=== PATIENT | female | born 1970 | race Caucasian/White ===

== ENCOUNTER 2022-05-31 07:48 | Outpatient (CLI) | payer OTHER, SELFPAY ==
--- OUTSIDE RECORDS SUMMARY | 2022-05-31 07:52 | XMS_ITS | Encounter Summary ---
:1970 Author Organization [place] Address [address] [place] [address] Care Team Providers Name Role Phone Madhuri Retana MD Primary Care Provider [phone] Dakotah Toth MD Unavailable [phone] Encounter Details Date Type Department Care Team Description 12/22/2020 Travel Social History Tobacco Use Types Packs/Day Years Used Date Smoking Tobacco: Never Smokeless Tobacco: Never Sex Assigned at Date Recorded Not on file COVID-19 Exposure Response Date Recorded In the last month, have you been in contact with No / Unsure 12/22/2020 1:54 PM CDT someone who was confirmed or suspected to have Coronavirus / COVID-19? documented as of this encounter Plan of Treatment Upcoming Encounters Date Type Specialty Care Team Description 06/21/2022 Office Visit Vascular Surgery Kim Toth MD [address] [place], [place] [address] (Wo rk) documented as of this encounter Visit Diagnoses Not on filedocumented in this encounter Care Teams Sanitation Inspector Relationship Specialty Start Date End Date Madhuri Retana, PCP - General Family Practice 06/03/20 [facility] [address] [place] [address] Dakotah Toth Assigned Heart and Vascular 0 MD Greyson Provider [address] [place], [place] [id number] documented as of this encounter
--- OUTSIDE RECORDS SUMMARY | 2022-05-31 07:52 | XMS_ITS | Encounter Summary ---
:1970 Author Organization [place] Address [address] [place] [address] Care Team Providers Name Role Phone Mdahuri Retana MD Primary Care Provider Dakotah Toth MD Unavailable [phone] Encounter Details Date Type Department Care Team Description 11/10/2020 Travel Social History Tobacco Use Types Packs/Day Years Used Date Smoking Tobacco: Never Smokeless Tobacco: Never Sex Assigned at Date Recorded Not on file COVID-19 Exposure Response Date Recorded In the last month, have you been in contact with No / Unsure 11/10/2020 11:17 AM CDT someone who was confirmed or suspected to have Coronavirus / COVID-19? documented as of this encounter Plan of Treatment Upcoming Encounters Date Type Specialty Care Team Description 06/21/2022 Office Visit Vascular Surgery Kim Toth MD [address] [place], [place] [address] (Wo rk) documented as of this encounter Visit Diagnoses Not on filedocumented in this encounter Care Teams Associate Professor Of Geology Relationship Specialty Start Date End Date Madhuri Retana, PCP - General Family Practice 06/03/20 [facility] [address] [place] [address] Dakotah Toth Assigned Heart and Vascular 0 MD Greyson Provider [address] [place], [place] [id number] documented as of this encounter
--- OUTSIDE RECORDS SUMMARY | 2022-05-31 07:52 | XMS_ITS | Encounter Summary ---
:1970 Author Organization [place] Address [address] [place] [address] Care Team Providers Name Role Phone Madhuri Retana MD Primary Care Provider [phone] Dakotah Toth MD Unavailable [phone] Reason for Visit Diagnostic Imaging Ultrasound (Routine) - Closed Specialty Diagnoses / Procedures Referred By Contact Refer red To Contact Diagnoses Varicose veins of both lower extremities with complications Dakotah Toth Procedures US Venous Competency Bilateral MD [place] [address] [place] [address] Referral ID Status Reason Start Date Expiration Date Visits Requ ested Visits Authorized [id number] Closed 07/28/2020 07/28/2021 1 1 Encounter Details Date Type Department Care Team Description 08/18/2020 Ancillary [facility] Nicolas Toth v eins of Procedure [facility] Dakotah Rubi, both lower Solutions extremities with [address] [facility] [address] [facility] S [facility] [address] [place] [address] [place] [phone] (Work) [phone] Social History Tobacco Use Types Packs/Day Years Used Date Smoking Tobacco: Never Assessed Sex Assigned at Date Recorded Not on file COVID-19 Exposure Response Date Recorded In the last month, have you been in contact with No / Unsure 08/18/2020 9:08 AM HOG TENDER someone who was confirmed or suspected to have Coronavirus / COVID-19? documented as of this encounter Plan of Treatment Upcoming Encounters Date Type Specialty Care Team Description 06/21/2022 Office Visit Vascular Surgery Kim Toth MD [address] [place] [address] (Wo rk) documented as of this encounter Procedures Procedure Name Priority Date/Time Associated Diagnosis Comme nts US VENOUS Routine 08/18/2020 11:14 Varicose veins of both R esults for this COMPETENCY AM HOG TENDER lower extremities with proce dure are in BILATERAL complications the results section. documented in this encounter Results US Venous Competency Bilateral (08/18/2020 11:14 AM HOG TENDER) Anatomical Region Laterality Modality Lower Extremity Ultrasound Specimen (Source) Anatomical Location Collection Method / Collectio n Time Received Time / Laterality Volume Impressions 08/18/2020 12:16 PM HOG TENDER ? Exa mined by: JOURDAN Age: ??50 year old ? Licha stock MD: CPN ?? INDICATION:INDICATION: ?Varicose vei ns of bilateral lower extremities with complications. History of previous vein procedures. ?? EXAM TYPE BILATERAL LOWER EXTREMITY VENOUS DUPLEX FOR VENOUS INSUFFICIENCY TECHNICAL SUMMARY ?? A duplex ultrasound study using color fl ow was performed to evaluate the bilateral lower extremity veins for valv ular incompetence with the patient in a steep reversed trendelenberg. ?? RIGHT: ?? The deep veins demonstrate phasic flow, compress, and respond to augmentations. ??There is no evidence of DVT. ??The common femoral vein is incompetent and free of thrombus. The re maining deep veins are competent and free of thrombus. ?? The GSV demonstrates phasic flow, compre sses, and responds to augmentations from the saphenofemoral ju nction to the ankle with no evidence of reflux or thrombus. The grea ter saphenous vein measures 5.8 mm at the saphenofemoral junction and 5.4 m m distally. The GSV gives rise to multiple incompetent varicose veins, the largest measures 3.9 mm off the distal thigh that courses medially with a reflux time of 1584 milliseconds. ?? The AASV is competent (5.1 mm) ??from th e saphenofemroal junction to the proximal thigh. ?? The Giacomini vein is competent ( 2.0 mm ) communicating with the small saphenous vein at the knee level. ?? The SSV demonstrates phasic flow, compre sses, and responds to augmentations from the popliteal space t o the ankle. ??No reflux or thrombus is seen. The saphenopopliteal j unction is competent (3.9 mm). ?? Perforators: There is no evidence of inc ompetent rickshaw driver veins at any level. ?? LEFT: ?? The deep veins demonstrate phasic flow, compress, and respond to augmentations. ??There is no evidence of DVT. ??The common femoral and proximal femoral veins are incompetent a nd free of thrombus. The remaining deep veins are competent and free of thr ombus. ?? The GSV demonstrates phasic flow, compre sses, and responds to augmentations from the saphenofemoral ju nction to the ankle with no evidence of thrombus. The greater saphen ous vein measures 10.1 mm at the saphenofemoral junction and 5.8 mm dista lly. The GSV is incompetent from the proximal to mid calf ??with the grea test reflux time of 1155 milliseconds. ? The AASV is competent (4.4 mm) ??from th e saphenofemoal junction to the mid thigh. The AASV gives rise to a varicose branch measuring 3.8 mm off the mid thigh that courses anteriorly and la terally to the lateral knee with a reflux time of 1617 milliseconds. ?? The Giacomini vein is competent (1.7 mm) communicating with the small saphenous vein at the knee level. ?? The SSV demonstrates phasic flow, compre sses, and responds to augmentations from the popliteal space t o the ankle. ??No reflux or thrombus is seen. The saphenopopliteal j unction is competent (3.3 mm). ?? Perforators: There is no evidence of inc ompetent rickshaw driver veins at any level. ?? FINAL SUMMARY: 1. ? No evidence of bilateral lower extremity deep vein thrombus. 2. ? Right common femoral vein incompetence. ??Left common femoral and proximal femoral vein incompetence. 3. ? Right varicose vein incom petence. 4. ? Left greater saphenous ve in incompetence. 5. ? Left varicose vein incomp etence. 6. ? The time of incompetence is greater than 500 milliseconds in length. Narrative 08/18/2020 12:16 PM HOG TENDER Name: ??Sonia Larios ? Date: August 18, 2020 ?: [birth year] Sex: female Dakotah Toth MD [facility] ORDERABLES documented in this encounter Visit Diagnoses Diagnosis Varicose veins of both lower extremities with complications documented in this encounter Care Teams Learning And Development Intern Relationship Specialty Start Date End Date Madhuri Retana, PCP - General Family Practice 06/03/20 [facility] [address] [place] [address] Dakotah Toth Assigned Heart and Vascular 0 MD Greyson Provider [address] [facility] [address] [place], [place] [address] documented as of this encounter
--- OUTSIDE RECORDS SUMMARY | 2022-05-31 07:52 | XMS_ITS | Encounter Summary ---
:1970 Author Organization [facility] Address [address] [place] [address] Care Team Providers Name Role Phone Madhuri Retana MD Primary Care Provider [phone] Dakotah Toth MD Unavailable [phone] Encounter Details Date Type Department Care Team Description 10/06/2020 Travel Social History Tobacco Use Types Packs/Day Years Used Date Smoking Tobacco: Never Assessed Sex Assigned at Date Recorded Not on file COVID-19 Exposure Response Date Recorded In the last month, have you been in contact with No / Unsure 10/06/2020 10:16 AM ROUGE PRESSER someone who was confirmed or suspected to have Coronavirus / COVID-19? documented as of this encounter Plan of Treatment Upcoming Encounters Date Type Specialty Care Team Description 06/21/2022 Office Visit Vascular Surgery Kim Toth MD [address] [place] [address] (Wo rk) documented as of this encounter Visit Diagnoses Not on filedocumented in this encounter Care Teams Investment Executive Relationship Specialty Start Date End Date Madhuri Retana, PCP - General Family Practice 06/03/20 [facility] [address] [place] [address] Dakotah Toth Assigned Heart and Vascular 0 MD Greyson Provider [address] [place] [id number] documented as of this encounter
--- OUTSIDE RECORDS SUMMARY | 2022-05-31 07:52 | XMS_ITS | Clinical Summary ---
:1970 Author Organization [place] Address [address] [place] [address] Care Team Providers Name Role Phone Madhuri Retana MD Primary Care Provider [phone] Dakotah Toth MD Unavailable [phone] Allergies Active Allergy Reactions Severity Noted Date Comments Amoxicillin 07/28/2020 Codeine 07/28/2020 Penicillins 07/28/2020 Medications Medication Sig Dispensed Refills Start Date End Date Status valACYclovir 0 07/19/2020 Active (VALTREX) 1000 mg tablet amLODIPine (NORVASC) Take 5 mg by mouth 0 Active 5 MG tablet daily cyanocobalamin Take by mouth daily 0 Active (VITAMIN B-12) 1000 MCG tablet UNABLE TO FIND MEDICATION NAME: 0 Active Multivitamins cholecalciferol Take 2 capsules by 0 Active (VITAMIN D3) 25 mcg mouth daily (1000 units) capsule Encounters Date Type Specialty Care Team Description 05/03/2022 Office Visit Vascular Surgery Dakotah Toth telangiectasis of skin (Primary Dx); MD Gre[place] Asymptomatic va ricose veins of left lower extremity 05/03/2022 Travel from Last 3 Months Social History Tobacco Use Types Packs/Day Years Used Date Smoking Tobacco: Never Smokeless Tobacco: Never Sex Assigned at Date Recorded Not on file COVID-19 Exposure Response Date Recorded In the last 10 days, have you been in contact with No / Unsu re 05/03/2022 10:46 AM CDT someone who was confirmed or suspected to have Coronavirus/COVID-19? Plan of Treatment Upcoming Encounters Date Type Specialty Care Team Description 06/21/2022 Office Visit Vascular Surgery Kim Toth MD [address] [place] [address] (Wo rk) Health Maintenance Due Date Last Done Comments ADVANCE CARE PLANNING 1970 ANNUAL REVIEW OF HM ORDERS 1969 CT COLONOGRAPHY 1969 FIT-DNA (Cologuard) 1970 FIT 1970 FLEX SIG 1970 HEPATITIS B IMMUNIZATION (1 1969 of 3 - 3-dose series) MAMMO SCREENING 1970 YEARLY PREVENTIVE VISIT 1969 COLONOSCOPY 1979 COLORECTAL CANCER SCREENING 1979 HIV SCREENING 1984 HEPATITIS C SCREENING 1987 PAP 1990 LIPID 2014 PHQ-2 (once per calendar 08/12/2021 year) COVID-19 Vaccine (5 - 08/24/2021 06/29/2021, 05/23/2021, Booster) 09/20/2020, Additional history exists DTAP/TDAP/TD IMMUNIZATION 12/25/2021 12/26/2011 (2 - Td or Tdap) INFLUENZA VACCINE (#1) 2022 05/25/2021, 05/26/2019, 05/28/2016, Additional history exists ZOSTER IMMUNIZATION Completed 11/10/2020, 08/25/2020, 06/02/2020 IPV IMMUNIZATION Aged Out No longer eligi ble based on patient 's age to complete this topic MENINGITIS IMMUNIZATION Aged Out No longe r eligible based on patient 's age to complete this topic Pneumococcal Vaccine: Aged Out No longer eligible Pediatrics (0 to 5 Years) based on patient's age and At-Risk Patients (6 to to co mplete this topic 64 Years) Insurance Payer Benefit Plan / Group Subscriber ID Effective Phone Addre ss Type Dates PREFERREDONE PREFERREDONE NON [id number] 2020-Pre [phone] [address] [facility] sent [phone] [facility] [place] [address] [address] (Home) [place] E [phone] [place], [place] (Work) [phone] Care Teams Bill Checker Relationship Specialty Start Date End Date Madhuri Retana, PCP - General Family Practice 06/03/20 [facility] [address] [place] [address] Dakotah Toth Assigned Heart and Vascular 0 MD Greyson Provider [address] [id number]
--- OUTSIDE RECORDS SUMMARY | 2022-05-31 07:52 | XMS_ITS | Encounter Summary ---
:1970 Author Organization [facility] Address [address] [place] [address] Care Team Providers Name Role Phone Madhuri Retana MD Primary Care Provider [phone] Dakotah Toth MD Unavailable Reason for Visit Reason Comments RECHECK Last seen for $ us guided sc lero 12/22/20 has upcoming sclero scheduled. Worried about left leg vein. Encounter Details Date Type Department Care Team Description 05/03/2022 Office Visit [facility] Ingrid Toth tel angiectasis of skin (Primary Dx); [facility] varicose veins of left lower extremity [place] [address] [phone] Social History Tobacco Use Types Packs/Day Years Used Date Smoking Tobacco: Never Smokeless Tobacco: Never Sex Assigned at Date Recorded Not on file COVID-19 Exposure Response Date Recorded In the last 10 days, have you been in contact with No / Unsu re 05/03/2022 10:46 AM CDT someone who was confirmed or suspected to have Coronavirus/COVID-19? documented as of this encounter Progress Notes Dakotah Toth MD - 05/03/2022 11:00 AM CDT [facility] [place] office note Sonia Larios is scheduled for cosmetic sclerotherapy in June but has a vein on the lateral left thigh that she wanted me to check to be sure that no imaging is needed prior to the treatment. On exam there is a reticular veins/small varicosity coursing on the lateral left thigh from the mid thigh down to the knee. Otherwise, she has is telangiectasia on the distal posterior lateral left leg and a small cluster offine red telangiectasias on the distal medial right thigh. Assessment/plan The patient will return for sclerotherapy in June as scheduled. We will have ultrasound available to see if the vein on the lateral left thigh needs ultrasound guidance for injection. 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 [address] [place] [address] documented as of this encounter
--- OUTSIDE RECORDS SUMMARY | 2022-05-31 07:52 | XMS_ITS | Encounter Summary ---
:1970 Author Organization [facility] Address [address] [place] [address] Care Team Providers Name Role Phone Madhuri Retana MD Primary Care Provider [phone] Dakotah Toth MD Unavailable [phone] Encounter Details Date Type Department Care Team Description 08/18/2020 Travel Social History Tobacco Use Types Packs/Day Years Used Date Smoking Tobacco: Never Assessed Sex Assigned at Date Recorded Not on file COVID-19 Exposure Response Date Recorded In the last month, have you been in contact with No / Unsure 08/18/2020 9:08 AM SUPERVISOR PHOSPHORIC ACID someone who was confirmed or suspected to have Coronavirus / COVID-19? documented as of this encounter Plan of Treatment Upcoming Encounters Date Type Specialty Care Team Description 06/21/2022 Office Visit Vascular Surgery Kim Toth MD [address] [place], [place] [address] (Wo rk) documented as of this encounter Visit Diagnoses Not on filedocumented in this encounter Care Teams Velocity Shooter Relationship Specialty Start Date End Date Madhuri Retana, PCP - General Family Practice 06/03/20 [facility] [address] [place] [address] Dakotah Toth Assigned Heart and Vascular 0 MD Greyson Provider [address] [place] [address] documented as of this encounter
--- OUTSIDE RECORDS SUMMARY | 2022-05-31 07:52 | XMS_ITS | Encounter Summary ---
:1970 Author Organization [place] Address [address] [place] [address] Care Team Providers Name Role Phone Madhuri Retana MD Primary Care Provider [phone] Encounter Details Date Type Department Care Team Description 07/28/2020 Travel Social History Tobacco Use Types Packs/Day Years Used Date Smoking Tobacco: Never Assessed Sex Assigned at Date Recorded Not on file COVID-19 Exposure Response Date Recorded In the last month, have you been in contact with No / Unsure 07/28/2020 11:13 AM FBI FIELD AGENT someone who was confirmed or suspected to have Coronavirus / COVID-19? documented as of this encounter Plan of Treatment Upcoming Encounters Date Type Specialty Care Team Description 06/21/2022 Office Visit Vascular Surgery Kim Toth MD [address] [address] (Wo rk) documented as of this encounter Visit Diagnoses Not on filedocumented in this encounter Care Teams Equipment Driver Relationship Specialty Start Date End Date Madhuri Retana MD PCP - General Family Practice 06/03/[address] [address] documented as of this encounter
--- OUTSIDE RECORDS SUMMARY | 2022-05-31 07:52 | XMS_ITS | Encounter Summary ---
:1970 Author Organization [place] Address [address] [facility] [place] [address] Care Team Providers Name Role Phone Madhuri Retana MD Primary Care Provider [phone] Dakotah Toth MD Unavailable [phone] Reason for Visit Reason Comments RECHECK cristina. us results Encounter Details Date Type Department Care Team Description 09/01/2020 Virtual Visit [facility] Janey, Varicose veins of both Vein Clinic Fátima Rubi, [facility] e xtremities with Sammi GOLD complications (Primary [id number] [facility] [address] Dx) [address] [phone] Social History Tobacco Use Types Packs/Day Years Used Date Smoking Tobacco: Never Assessed Sex Assigned at Date Recorded Not on file COVID-19 Exposure Response Date Recorded In the last month, have you been in contact with No / Unsure 08/18/2020 9:08 AM WOOL SHEARING SUPERVISOR someone who was confirmed or suspected to have Coronavirus / COVID-19? documented as of this encounter Progress Notes Dakotah Toth MD - 09/01/2020 3:30 PM CST Sonia is a 50 year old who is being evaluated via a billable video visit. How would you like to obtain your AVS? MyChart If the video visit is dropped, the invitation should be resent by: Text to cell phone: [phone] Will anyone else be joining your video visit? No Video Start Time: 11:14 AM Video-Visit Details Type of service: Video Visit Video End Time:11:19 AM Originating Location (pt. Location): Home Distant Location (provider location): [facility] Platform used for Video Visit: [facility] Note Sonia Larios presents in follow-up of recurrent bilateral lower extremity pain and left lower extremity varicose veins. Please see my consultation of 07/28/2020 for details. She returned on 08/18/2020 for bilateral lower extremity venous competency study, the results of which we will discuss on today's video visit. Physical Exam General: Pleasant female in no acute distress. Blood pressure 172/78, pulse 72 Extremities: Right lower extremity: Reticular vein on the medial right thigh coursing down to a starburst of telangiectasias on the distal medial right thigh. No other varicose veins are appreciated. Left lower extremity: 3 to 4 mm varicosity coursing from the mid anterior left thigh, lateral to theleft knee and onto the lateral left leg. There are no venous stasis changes or edema. Ultrasound: Right lower extremity: No evidence of deep vein thrombosis. The right common femoral vein is incompetent but the remaining deep vein valves are competent. Her right great saphenous, small saphenous, anterior extensor saphenous and vein of Giacomini are all competent. There are no significant incompetent perforators. There is a 3.9 mm diameter incompetent vein branch coursing from the mid thigh great saphenous vein with reflux time of 1.5 seconds. Left lower extremity: No deep vein thrombosis. Her left common femoral and proximal femoral veins are incompetent but the remaining deep vein valves are competent. The left great saphenous vein is competent except and the proximal and mid calf, measures only 2.1 mm in diameter. The left anterior accessory saphenous vein and vein of Giacomini are competent. There are no significant incompetent perforators appreciated. There is a 3.8 mm diameter incompetent vein branch coursing down the left anterior thigh and lateralto the knee with reflux time of 1.6 seconds. Assessment: C2, VCSS 3 bilateral extremity pain with left greater than right leg varicose veins. There is no significant underlying axial incompetence that needs to be treated. We discussed the option of continuedconservative measures with compression hose, elevation, dietary measures and exercise. She has pursued these measures for years. The incompetent vein branches on the right medial thigh and left anterior thigh and leg are the areas of her discomfort. Risks from conservative treatment including superficial thrombophlebitis, bleeding and progression of the disease process were discussed. If she chose treatment, I think these veinson the right medial thigh and left anterior thigh and lateral left leg would be best treated with ultrasound-guided sclerotherapy. As this is recurrent disease, this will be considered medically necessary. One session of sclerotherapy should suffice to treat these veins. Details of sclerotherapy including risks of allergic reaction, deep vein thrombosis, ulceration, hyperpigmentation and matting were discussed. She voiced understanding and wishes to proceed. Plan: Ultrasound-guided sclerotherapy of recurrent, bilateral lower extremity varicose veins. She may wishto have some telangiectasia treated for cosmetic purposes with full understanding that spider vein treatment will be cosmetic and not covered by insurance. Dakotah Toth MD Dictated using [employer] voice recognition software which may result in care trainer errors SHEARING SUPERVISOR documented in this encounter Plan of Treatment Upcoming Encounters Date Type Specialty Care Team Description 06/21/2022 Office Visit Vascular Surgery Kim Toth MD [address] [place] [address] (Wo rk) documented as of this encounter Visit Diagnoses Diagnosis Varicose veins of both lower extremities with complications - Primary documented in this encounter Care Teams Shafting Worker Relationship Specialty Start Date End Date Madhuri Retana, PCP - General Family Practice 06/03/20 [facility] [address] [place] [address] Dakotah Toth Assigned Heart and Vascular 0 MD Greyson Provider [address] [place] [address] documented as of this encounter
--- OUTSIDE RECORDS SUMMARY | 2022-05-31 07:52 | XMS_ITS | Encounter Summary ---
:1970 Author Organization [place] Address [address] [place] [address] Care Team Providers Name Role Phone Madhuri Retana MD Primary Care Provider [phone] Dakotah Toth MD Unavailable [phone] Encounter Details Date Type Department Care Team Description 05/03/2022 Travel Social History Tobacco Use Types Packs/Day Years Used Date Smoking Tobacco: Never Smokeless Tobacco: Never Sex Assigned at Date Recorded Not on file COVID-19 Exposure Response Date Recorded In the last 10 days, have you been in contact with No / Unsu re 05/03/2022 10:46 AM CDT someone who was confirmed or suspected to have Coronavirus/COVID-19? documented as of this encounter Plan of Treatment Upcoming Encounters Date Type Specialty Care Team Description 06/21/2022 Office Visit Vascular Surgery Kim Toth MD [address] [place], [place] [address] (Wo rk) documented as of this encounter Visit Diagnoses Not on filedocumented in this encounter Care Teams Internal Control Manager Relationship Specialty Start Date End Date Madhuri Retana, PCP - General Family Practice 06/03/20 [facility] [address] [place] [address] Dakotah Toth Assigned Heart and Vascular 0 MD Greyson Provider [address] [place], [place] [address] documented as of this encounter
--- OUTSIDE RECORDS SUMMARY | 2022-05-31 07:52 | XMS_ITS | Encounter Summary ---
:1970 Author Organization [place] Address [address] [place] [address] Care Team Providers Name Role Phone Unavailable Primary Care Provider Unavailable Encounter Details Date Type Department Care Team Description 12/03/2018 Travel Social History Tobacco Use Types Packs/Day Years Used Date Smoking Tobacco: Never Assessed Sex Assigned at Date Recorded Not on file documented as of this encounter Plan of Treatment Upcoming Encounters Date Type Specialty Care Team Description 06/21/2022 Office Visit Vascular Surgery Kim Toth MD [address] [address] (Wo rk) documented as of this encounter Visit Diagnoses Not on filedocumented in this encounter
[2022-05-31 10:34] LABS: Albumin* 4.6 g/dL (3.3-5.0); Chloride* 102 mmol/L (96-114)
[2022-05-31 10:35] LABS: Potassium* 3.9 mmol/L (3.6-5.1); Sodium* 139 mmol/L (135-149)
[2022-05-31 10:37] LABS: Aspartate Amino Transferase* 41 U/L (12-35); Bilirubin Total* 1.1 mg/dL (0.1-1.5); Blood Urea Nitrogen* 16 mg/dL (7-30); Carbon Dioxide* 30 mmol/L (20-32); Cholesterol* 179 mg/dL (90-199); Creatinine* 0.6 mg/dL (0.5-1.5); Estimated Glomerular Filt Rate 108 ml/min; Glucose* 85 mg/dL (60-115); Total Protein* 7.4 g/dL (6.0-8.3)
[2022-05-31 10:38] LABS: Alanine Aminotransferase* 26 U/L (4-35); Alkaline Phosphatase* 90 U/L (40-150); Calcium* 10.1 mg/dL (8.4-10.6); HDL Cholesterol* 76 mg/dL (>=50); LDL Cholesterol Calculated 92 mg/dL (<100); Triglycerides* 54 mg/dL (40-149)
[2022-05-31 10:59] LABS: Vitamin D 25 Hydroxy* 47 ng/mL (30-80)
[2022-05-31 11:17] LABS: Ferritin* 8.9 ng/mL (11.1-264.0)
[2022-05-31 11:24] LABS: Vitamin B12* 908 pg/mL (243-894)
== END 2022-05-31 07:49 | disposition home or self-care (01) ==
PROVIDERS: PCP Family Medicine; Visit Provider Family Medicine
DX: Z01.419 Encounter for gynecological examination (general) (routine) without abnormal findings (principal); R53.83 Other fatigue; I10 Essential (primary) hypertension; Z13.6 Encounter for screening for cardiovascular disorders
CPT/HCPCS: 80053; 80061; 82306; 82607; 82728

== ENCOUNTER 2022-06-14 08:02 | Outpatient (CLI) | payer OTHER, SELFPAY ==
--- OUTSIDE RECORDS SUMMARY | 2022-06-14 08:04 | XMS_ITS | Encounter Summary ---
:1970 Author Organization [place] Address [address] [place] [address] Care Team Providers Name Role Phone Madhuri Retana MD Primary Care Provider [phone] Dakotah Toth MD Unavailable [phone] Encounter Details Date Type Department Care Team [...] Office Visit Vascular Surgery Kim Toth MD [address] [place], [place] [address] (Wo rk) documented as of this encounter Visit Diagnoses Not on filedocumented in this encounter Care Teams Floodplain Manager Relationship Specialty Start Date End Date Madhuri Retana, PCP - General Family Practice 06/03/20 [facility] [address] [place] [address] Dakotah Toth Assigned Heart and Vascular 0 MD Greyson Provider [address] [place], [place] [address] documented as of this encounter
--- OUTSIDE RECORDS SUMMARY | 2022-06-14 08:04 | XMS_ITS | Encounter Summary ---
:1970 Author Organization [place] Address [address] [place] [address] Care Team Providers Name Role Phone Madhuri Retana MD Primary Care Provider [phone] Dakotah Toth MD Unavailable [phone] Encounter Details Date Type Department Care Team Description 10/06/2020 Travel Social History Tobacco Use Types Packs/Day Years Used Date Smoking Tobacco: Never Assessed Sex Assigned at Date Recorded Not on file COVID-19 Exposure Response Date Recorded In the last month, have you been in contact with No / Unsure 10/06/2020 10:16 AM CUTTING SUPERVISOR someone who was confirmed or suspected to have Coronavirus / COVID-19? documented as of this encounter Plan of Treatment Upcoming Encounters Date Type Specialty Care Team Description 06/21/2022 Office Visit Vascular Surgery Kim Toth MD [address] [place] [address] (Wo rk) documented as of this encounter Visit Diagnoses Not on filedocumented in this encounter Care Teams Construction Carpenter Relationship Specialty Start Date End Date Madhuri Retana, PCP - General Family Practice 06/03/20 [facility]ILY [facility] [address] [place] [address] Dakotah Toth Assigned Heart and Vascular 0 MD Greyson Provider [address] [place] [address] documented as of this encounter
--- OUTSIDE RECORDS SUMMARY | 2022-06-14 08:04 | XMS_ITS | Encounter Summary ---
:1970 Author Organization [place] Address [address] [place] [address] Care Team Providers Name Role Phone Madhuri Retana MD Primary Care Provider [phone] Dakotah Toth MD Unavailable [phone] Reason for Visit Reason Comments RECHECK 1 month follow up from $ scl ero done on 11/10/20. no tx per cpn Encounter Details Date Type Department Care Team Description 12/22/2020 Office Visit [facility] Janey, Varicose v eins of left lower extremity with pain (Primary Dx); [facility] Spider telangiectasis of skin Sammi GOLD [address] [phone] Social History Tobacco Use Types Packs/Day [...] encounter Progress Notes Dakotah Toth MD - 12/22/2020 2:00 PM CDT [facility] [place] office note Sonia Larios returns in 6-week follow-up of her second session of cosmetic sclerotherapy. Her first session was performed with ultrasound guidance for slightly larger right medial thigh varicose veins which have resolved nicely. The last session was performed under direct vision for smaller spider telangiectasias. The patient feels that she has had excellent result and is very happy. She states that the discomfort she was having in her distal medial right thigh prior to treatment has abated. She states that she may wear shorts this summer, not having done so last year because of how she felt her legs appeared. Physical exam Right lower extremity: A few, fine, red, scattered telangiectasias of the distal medial right thigh.No varicose veins. There is no hyperpigmentation. There is some mild induration over a 2 inch length of the distal medial right thigh below the courseof the treated varicosity. Left lower extremity: A few, scattered telangiectasias but nothing significant. Impression Good result status post 2 sessions of cosmetic sclerotherapy for varicose veins and telangiectasias.She will return on an as-needed basis. Yaw Toth MD Dictated using [employer] voice recognition software which may result in supervisor pumping errors documented in this encounter Plan of Treatment Upcoming Encounters Date Type Specialty Care Team Description 06/21/2022 Office Visit Vascular Surgery Kim Toth MD [address] [place] [address] (Wo rk) documented as of this encounter Visit Diagnoses Diagnosis Varicose veins of left lower extremity w ith pain - Primary Varicose veins of lower extremities with other complications Spider telangiectasis of skin Nevus, non-neoplastic documented in this encounter Care Teams [id number] Android Developer Relationship Specialty Start Date End Date Madhuri Retana, PCP - General Family Practice 06/03/20 [facility] [address] [place] [address] Dakotah Toth Assigned Heart and Vascular 0 MD Greyson Provider [address] [place] [address] documented as of this encounter
--- OUTSIDE RECORDS SUMMARY | 2022-06-14 08:04 | XMS_ITS | Encounter Summary ---
:1970 Author Organization [place] Address [address] [place] [address] Care Team Providers Name Role Phone Madhuri Retana MD Primary Care Provider [phone] Dakotah Toth MD Unavailable Reason for Visit Reason Comments Sclerotherapy Encounter Details Date Type Department Care Team Description 11/10/2020 Office Visit [facility] Ingrid Toth tel angiectasis of skin (Primary Dx); Vein Clinic Fátima Rubi Varicos e veins of left lower extremity with pain Sammi GOLD [address] [phone] Social History Tobacco Use Types Packs/Day [...] encounter Progress Notes Dakotah Toth MD - 11/10/2020 11:30 AM CDTAssociated Order(s): Sclerotherapy Post-Procedure Diagnose(s): Spider telangiectasis of skin Vein Clinic Sclerotherapy Note Indications: Residual bilateral lower extremity spider telangiectasias of cosmetic concern; status post medicallynecessary, ultrasound-guided sclerotherapy of bilateral lower extremity varicose veins Procedure: Bilateral lower extremity cosmetic sclerotherapy Procedure description Details of procedure including risks of allergic reaction, deep vein thrombosis, ulceration, superficial thrombophlebitis and hyperpigmentation were discussed. The patient voiced understanding and wished to proceed. Informed consent was obtained. The patient had residual bilateral extremity spider telangiectasias of cosmetic concern after havingundergone medically necessary sclerotherapy on 10/06/2020. She was very happy with the results but had a few telangiectasias she would like treated. Examination revealed a few areas of trapped blood within previously treated veins. I donned the Syris headlight and injected telangiectasias on both lower extremities using 0.5% polidocanol foam. After completing the sclerotherapy, I cleaned a few areas of trapped blood with alcohol,made stab wounds with an 18- gauge needle and expressed thrombus. We cleaned her legs, had her perform ankle pumps and then she donned thigh-high compression hose. We had her walk for 10 minutes prior to getting a car drive home I will have her return in about 6 weeks in follow-up. She tolerated procedure well without evidence of allergic reaction of complications. Sclerotherapy Date/Time: 11/13/2020 6:05 PM Performed by: Dakotah Toth MD Authorized by: Dakotah Toth MD Time out: Immediately prior to the procedure a time out was called Type: Cosmetic Session: Limited Procedure side: Bilateral Solution/Amount: .5 POLIDOCANOL Syringes:: 2 Evacuation of intraluminal thrombus under sterile conditions without complications. Yaw Toth MD Dictated using Server[employer] voice recognition software which may result in hedge trimmer errors documented in this encounter Plan of Treatment Upcoming Encounters Date Type Specialty Care Team Description 06/21/2022 Office Visit Vascular Surgery Kim Toth MD [address] [address] (Wo rk) documented as of this encounter Procedures Procedure Name Priority Date/Time Associated Diagnosis Comme nts [place] SCLERO-SPIDER Routine 11/10/2020 11:30 Spider telangiectasi s Results for this VEINS LIMITED AM CDT of skin procedure are in SESSION the results section. documented in this encounter Results [place] SCLERO-SPIDER VEINS LIMITED SESSION (11/10/2020 11:30 AM CDT) Narrative Dakotah Toth MD - 11/11/19 11:30 AM CDT Dakotah Toth MD ? 11/13/2020 ??6:12 PM Sclerotherapy Date/Time: 11/13/2020 6:05 PM Performed by: Dakotah Toth MD Authorized by: Dakotah Toth MD Time out: Immediately prior to the proce dure a time out was called ?? Type: ??Cosmetic Session: ??Limited Procedure side: ??Bilateral Solution/Amount: ??.5 POLIDOCANOL Syringes:: ??2 Evacuation of intraluminal thrombus unde r sterile conditions without complications. ?? Dakotah Toth MD PROCEDURE/MINOR SURGICAL O RDERABLES documented in this encounter Visit Diagnoses Diagnosis Spider telangiectasis of skin - Primary Nevus, non-neoplastic Varicose veins of left lower extremity w ith pain Varicose veins of lower extremities with other complications documented in this encounter Administered Medications Inactive Administered Medications - up to 3 most recent administrations Medication Order MAR Action Action Date Dose Rate Site polidocanol (ASCLERA) 5 mg/mL Given 11/10/2020 1:21 PM CDT 2 mLs injection 2 mL 2 mL, Intravenous, ONCE, On Krissy 11/10/20 at 1330, For 1 dose documented in this encounter Care Teams Veterinary Epidemiologist Relationship Specialty Start Date End Date Madhuri Retana, PCP - General Family Practice 06/03/20 [facility] [address] [place] [address] Dakotah Toth Assigned Heart and Vascular 0 MD Greyson Provider [address] [facility] [address] [address] documented as of this encounter
--- OUTSIDE RECORDS SUMMARY | 2022-06-14 08:04 | XMS_ITS | Encounter Summary ---
:1970 Author Organization [place] Address [address] [place] [address] Care Team Providers Name Role Phone Unavailable [...] Visit Vascular Surgery Kim Toth MD [address] [address] (Wo rk) documented as of this encounter Visit Diagnoses Not on filedocumented in this encounter
--- OUTSIDE RECORDS SUMMARY | 2022-06-14 08:04 | XMS_ITS | Encounter Summary ---
:1970 Author Organization [place] Address [address] [place] [address] Care Team Providers Name Role Phone Madhuri Retana MD Primary Care Provider [phone] Dakotah Toth MD Unavailable [phone] Reason for Visit Reason Comments RECHECK Last seen for $ us guided sc lero 12/22/20 has upcoming sclero scheduled. Worried about left leg vein. Encounter Details Date Type Department Care Team Description 05/03/2022 Office Visit [facility] Ingrid Toth tel angiectasis of skin (Primary Dx); [facility] varicose veins of left lower extremity Sammi GOLD [address] [phone] Social History Tobacco Use Types Packs/Day Years [...] Toth MD - 05/03/2022 11:00 AM CDT [facility] [place] office note Sonia Larios is scheduled for [...] injection. Yaw Toth MD, FACS Dictated using [employer] voice recognition software which may result in chief clerk errors documented in this encounter Plan of Treatment Upcoming Encounters Date Type Specialty Care Team Description 06/21/2022 Office Visit Vascular Surgery Kim Toth MD [address] [facility] [address] [place] [address] (Wo rk) documented as of this encounter Visit Diagnoses Diagnosis Spider telangiectasis of skin - Primary Nevus, non-neoplastic Asymptomatic varicose veins of left lowe r extremity Asymptomatic varicose veins documented in this encounter Care Teams Warning Analyst Relationship Specialty Start Date End Date Madhuri Retana, PCP - General Family Practice 06/03/20 [facility] [address] [place] [address] Dakotah Toth Assigned Heart and Vascular 0 MD Greyson Provider [address] [facility] [address] [place] [address] documented as of this encounter
--- OUTSIDE RECORDS SUMMARY | 2022-06-14 08:04 | XMS_ITS | Encounter Summary ---
:1970 Author Organization [facility] Address [address] [place] [address] Care Team Providers Name Role Phone Madhuri Retana MD Primary Care Provider [phone] Reason for Referral Diagnostic Imaging Ultrasound (Routine) - Closed Specialty Diagnoses / Procedures Referred By Contact Refer red To Contact Diagnoses Varicose veins of both lower extremities with complications Dakotah Toth Procedures US Venous Competency Bilateral MD Greyson [address] [facility] [place] [address] Referral ID Status Reason Start Date Expiration Date Visits Requ ested Visits Authorized [id number] Closed 07/28/2020 07/28/2021 1 1 GER FINE Reason for Visit Reason Comments Leg Pain cristina. legs. last seen in 2017 Spider Veins/legs Varicose Vein Swelling Encounter Details Date Type Department Care Team Description 07/28/2020 Office Visit [facility] Nicolas Toth v eins of both Vein Clinic Fátima Rubi lower e xtremities with Sammi GOLD complications (Primary [id number] [facility] [address]) [facility] [address] [place] [id number] Social History Tobacco Use Types Packs/Day Years Used Date Smoking Tobacco: Never Assessed Sex Assigned at Date Recorded Not on file COVID-19 Exposure Response Date Recorded In the last month, have you been in contact with No / Unsure 07/28/2020 11:13 AM MANAGER FINE someone who was confirmed or suspected to have Coronavirus / COVID-19? documented as of this encounter Progress Notes Dakotah Toth MD - 07/28/2020 11:30 AM CST VEINSOLUTIONS CONSULTATION HPI: Sonia Larios is a pleasant 50 year old female who presents with complaints of recurrent bilateral lower extremity pain and varicose veins. I treated her, I believe, several years ago. Recurrent varicose veins have been present for about a year. The pain is described as an aching, tiredness, h eaviness, worse when standing for long periods of time and associated with excessive fatigue. The pain improves with elevation of the leg and with walking. She has worn compression hose but finds no relief with them. She has no history of deep vein thrombosis, superficial thrombophlebitis or hemorrhage. She admits to some mild ankle swelling in the evenings. PAST MEDICAL HISTORY: History reviewed. No pertinent past medical history. PAST SURGICAL HISTORY: History reviewed. No pertinent surgical history. FAMILY HISTORY: History reviewed. No pertinent family history. SOCIAL HISTORY: Social History Tobacco Use ??? Smoking status: Not on file Substance Use Topics ??? Alcohol use: Not on file REVIEW OF SYSTEMS: Review Of Systems Skin: negative Eyes: negative Ears/Nose/Throat: negative Respiratory: No shortness of breath, dyspnea on exertion, cough, or hemoptysis Cardiovascular: negative Gastrointestinal: negative Genitourinary: negative Musculoskeletal: Back pain, and leg pain, neck pain Neurologic: headaches Psychiatric: negative Hematologic/Lymphatic/Immunologic: negative Endocrine: negative Vital signs: There were no vitals taken for this visit. Current Outpatient Medications Medication Sig Dispense Refill ??? amLODIPine (NORVASC) 5 MG tablet Take 5 mg by mouth daily ??? cholecalciferol (VITAMIN D3) 25 mcg (1000 units) capsule Take 2 capsules by mouth daily ??? cyanocobalamin (VITAMIN B-12) 1000 MCG tablet Take by mouth daily ??? UNABLE TO FIND MEDICATION NAME: Multivitamins ??? valACYclovir (VALTREX) 1000 mg tablet PHYSICAL EXAM: General: Pleasant, NAD. HEENT: Normocephalic, atraumatic, external ears and nose normal. Respiratory: Normal respiratory effort. Cardiovascular: Pulse is regular. Musculoskeletal: Gait and station normal. The joints of her fingers and toes without deformity. There is no cyanosis of her nailbeds. EXTREMITIES: Right lower extremity: There is a reticular vein with starburst appearance of telangiectasias about the distal medial right thigh. I do not appreciate other significant varicose veins, swelling or venous stasis changes. Left lower extremity: There is a 3 to 4 mm varicosity coursing from the mid anterior left thigh, down the anterolateral left thigh, lateral to the left knee noted to the lateral aspect of the left leg.No venous stasis changes or edema.. PULSES: R/L (3=normal pulse, 0=no palpable pulse) dorsalis pedis: 3/3; posterior tibial: 3/0. Neurologic: Grossly normal Psychiatric: Mood, affect, judgment and insight are normal ASSESSMENT: Recurrent bilateral lower extremity pain with varicose veins. We discussed the anatomy and pathophysiology of venous insufficiency and the option of continued conservative management with small risk ofsuperficial thrombophlebitis, bleeding and progression of the disease process. If she wishes to have this further evaluated, she will need bilateral lower extremity venous competency study to see if there is underlying superficial incompetence to explain her symptoms. We briefly discussed options for treatment based on ultrasound findings which could include endovenous ablation and/or sclerotherapy. Risks and details were briefly discussed. PLAN: Bilateral lower extremity venous competency study with video visit to discuss results Dakotah Toth MD Dictated using WiWide voice recognition software which may result in commanding officer garage errors GER FINE documented in this encounter Plan of Treatment Upcoming Encounters Date Type Specialty Care Team Description 06/21/2022 Office Visit Vascular Surgery Kim Toth MD [address] [address] (Wo rk) documented as of this encounter Results US Venous Competency Bilateral (08/18/2020 11:14 AM MANAGER FINE) Anatomical Region Laterality Modality Lower Extremity Ultrasound Specimen (Source) Anatomical Location Collection Method / Collectio n Time Received Time / Laterality Volume Impressions 08/18/2020 12:16 PM MANAGER FINE ? Maldonado mined by: JOURDAN Age: ??50 year old [...] There is no evidence of inc ompetent rehabilitation engineer veins at any level. ?? LEFT: ?? [...] There is no evidence of inc ompetent rehabilitation engineer veins at any level. ?? FINAL SUMMARY: [...] milliseconds in length. Narrative 08/18/2020 12:16 PM MANAGER FINE Name: ??Sonia Larios ? Date: August 18, 2020 ?: [birth year] Sex: female Dakotah Toth MD [facility] ORDERABLES documented in this encounter Visit Diagnoses Diagnosis Varicose veins of both lower extremities with complications - Primary Varicose veins of both lower extremities with complications documented in this encounter Care Teams Check Out Clerk Relationship Specialty Start Date End Date Madhuri Retana MD PCP - General Family Practice 06/03/[address] [address] documented as of this encounter
--- OUTSIDE RECORDS SUMMARY | 2022-06-14 08:04 | XMS_ITS | Encounter Summary ---
:1970 Author Organization [facility] Address [address] [place] [address] Care Team Providers Name Role Phone Madhuri Retana MD Primary Care Provider [phone] Dakotah Toth MD Unavailable [phone] Encounter Details Date Type Department Care Team [...] Office Visit Vascular Surgery Kim Toth MD [address] [place], [place] [address] (Wo rk) documented as of this encounter Visit Diagnoses Not on filedocumented in this encounter Care Teams Composing Machine Operator Relationship Specialty Start Date End Date Madhuri Retana, PCP - General Family Practice 06/03/20 [facility] [address] [place] [address] Dakotah Toth Assigned Heart and Vascular 0 MD Greyson Provider [address] [place], [place] [address] documented as of this encounter
--- OUTSIDE RECORDS SUMMARY | 2022-06-14 08:04 | XMS_ITS | Encounter Summary ---
:1970 Author Organization [facility] Address [address] [place] [address] Care Team Providers Name Role Phone Madhuri Retana MD Primary Care Provider [phone] Dakotah Toth MD Unavailable [phone] Encounter Details Date Type Department Care Team [...] Office Visit Vascular Surgery Kim Toth MD [address] [place], [place] [address] (Wo rk) documented as of this encounter Visit Diagnoses Not on filedocumented in this encounter Care Teams Ict Help Desk Officer Relationship Specialty Start Date End Date Madhuri Retana, PCP - General Family Practice 06/03/20 [facility] MED[facility] [address] [place] [address] Dakotah Toth Assigned Heart and Vascular 0 MD Greyson Provider [address] [place], [place] [address] documented as of this encounter
--- OUTSIDE RECORDS SUMMARY | 2022-06-14 08:04 | XMS_ITS | Encounter Summary ---
:1970 Author Organization [facility] Address [address] [place] [address] Care Team Providers Name Role Phone Madhuri Retana MD Primary Care Provider [phone] Dakotah Toth MD Unavailable [phone] Reason for Visit Reason Comments Sclerotherapy us guided med nec and sclero $ Encounter Details Date Type Department Care Team Description 10/06/[address] [facility] Dakotah Toth cose veins of right lower extremity with pain; Vein Clinic Fátima Rubi MD Varicose veins of left lower extremity w [facility] [address] [place] [id number] [place] [address] [phone] [phone] (Work) [phone] Social History Tobacco Use Types Packs/Day Years Used Date Smoking Tobacco: Never Assessed Sex Assigned at Date Recorded Not on file COVID-19 Exposure Response Date Recorded In the last month, have you been in contact with No / Unsure 10/06/2020 10:16 AM JDE DEVELOPER someone who was confirmed or suspected to have Coronavirus / COVID-19? documented as of this encounter Progress Notes Dakotah Toth MD - 10/06/2020 10:30 AM CSTAssociated Order(s): Sclerotherapy; Sclerotherapy Post-Procedure Diagnose(s): Varicose veins of right lower extremity with pain; Varicose veins of left lower extremity with pain Vein Clinic Sclerotherapy Note Indications: 1. Recurrent bilateral lower extremity varicose veins with pain 2. Bilateral lower extremity spider telangiectasias of cosmetic concern Procedure: 1. Ultrasound-guided, medically necessary sclerotherapy multiple veins, bilateral lower extremities 2. Bilateral lower extremity cosmetic sclerotherapy (right thigh great saphenous vein tributaries, left anterior accessory saphenous vein tributaries) Procedure description Details of procedure including risks of allergic reaction, deep vein thrombosis, ulceration, superficial thrombophlebitis and hyperpigmentation were discussed. The patient voiced understanding and wished to proceed. Informed consent was obtained. Medically necessary sclerotherapy I imaged the right medial thigh with ultrasound and noted a sizable tributary coursing from the right great saphenous vein. This coursed down the medial thigh, medial to the knee and over the proximal medial right leg. The area of the patient's pain was in the distal medial right thigh, directly in the area of the large tributary. I isolated the tributary at the mid thigh level approximately 6 cm cephalad of where this tributary joined the great saphenous vein, directed a 27-gauge needle into the vein and injected 1% polidocanolfoam. I then injected the vein in the distal third of the thigh, at the level of the knee and then once in the proximal calf filling the vein fully with 1% polidocanol and sending it into tight spasm. I then imaged the left anterior thigh and noted a sizable tributary coursing from the left anterior accessory saphenous vein with a branch coursing medially down the left thigh and a branch coursing anterolaterally down the left thigh, lateral to left medial to the posterior lateral left leg. I isolated the vein at the mid thigh level just before it broke into the medial and lateral branchesand filled it with 1% polidocanol foam sending it into tight spasm. I then moved distally and injected the tributary in in the more medial thigh just distal to the mid thigh. We used a total of 9 mL of1% polidocanol foam (1 part polidocanol to 2.5 parts air) I then imaged the lateral distal left thigh but found this vein to be too small to access with ultrasound guidance, therefore I donned the size headlight and injected this tributary on the distal lateral left thigh, lateral to left knee down the posterior lateral left calf with 0.5% polidocanol under direct vision. Cosmetic sclerotherapy I donned the size headlight and injected telangiectasias over the distal medial right thigh, anteromedial right leg, posterior right calf and along the posterior lateral left thigh and calf with 0.5% polidocanol foam. We used a total of 6 mL of 0.5% polidocanol foam. We had the patient perform ankle pumps between injections of the 1% polidocanol and had her perform ankle pumps again after completing the session. We cleaned her legs, had her don thigh-high compression hose and will have her return in 1 month in follow-up of the ultrasound-guided sclerotherapy. We will plan no treatment at that time we will simply ensure there is no significant trapped blood. We will then plan to treat the spider veins at a later date. Sclerotherapy Date/Time: 10/06/2020 11:27 AM Performed by: Dakotah Toth MD Authorized by: Dakotah Toth MD Time out: Immediately prior to the procedure a time out was called Type: Medically Necessary Vein: Multiple Veins Yes Procedure side: Bilateral Solution/Amount: 1% POLIDOCANOL Syringes:: 3 syringes (9ml) Patient tolerance: Patient tolerated the procedure well with no immediate complications Sclerotherapy Date/Time: 10/06/2020 11:28 AM Performed by: Dakotah Toth MD Authorized by: Dakotah Toth MD Type: Cosmetic Session: Full Procedure side: Bilateral Solution/Amount: .5 POLIDOCANOL Syringes:: 2 Patient tolerance: Patient tolerated the procedure well with no immediate complications Wrap/Hose: Ashishe Yaw Toth MD Dictated using FRAMED voice recognition software which may result in insurance operations rep errors DEVELOPER documented in this encounter Plan of Treatment Upcoming Encounters Date Type Specialty Care Team Description 06/21/2022 Office Visit Vascular Surgery Kim Toth MD [address] [place] [address] [place] [address] (Wo rk) documented as of this encounter Procedures Procedure Name Priority Date/Time Associated Diagnosis Comme nts NM SCLERO-SPIDER Routine 10/06/2020 10:30 AM Varicose veins of Results for this VIENS FULL SESSION JDE DEVELOPER right lower procedure are in extremity with p ain the results Varicose veins of section. left lower extremity with pain NM US GUIDE FOR Routine 10/06/2020 10:30 AM Varicose veins of Results for this NEEDLE PLACEMENT JDE DEVELOPER right lower procedure a re in extremity with p ain the results Varicose veins of section. left lower extremity with pain NM INJECTION Routine 10/06/2020 10:30 AM Varicose veins of Res ults for this SCLEROSANT, MULT JDE DEVELOPER right lower procedure a re in VEINS, SAME LEG extremity with p ain the results Varicose veins of section. left lower extremity with pain documented in this encounter Results NM SCLERO-SPIDER VIENS FULL SESSION (10/06/2020 10:30 AM JDE DEVELOPER) Narrative Dakotah Toth MD - 10/06/19 10:30 AM Dakotah Chavez MD ? 10/06/2020 11:35 AM Sclerotherapy Date/Time: 10/06/2020 11:28 AM Performed by: Dakotah Toth MD Authorized by: Dakotah Toth MD Type: ??Cosmetic Session: ??Full Procedure side: ??Bilateral Solution/Amount: ??.5 POLIDOCANOL Syringes:: ??2 Patient tolerance: ??Patient tolerated t he procedure well with no immediate complications Wrap/Hose: ??Hose Dakotah Toth MD PROCEDURE/MINOR SURGICAL O RDERABLES NM INJECTION SCLEROSANT, MULT VEINS, SAME LEG, NM US GUIDE FOR NEEDLE PLACEMENT (10/06/2020 10:30 AMCST) Narrative Dakotah Toth MD - 10/06/19 10:30 AM JDE DEVELOPER Dakotah Toth MD ? 10/06/2020 11:35 AM Sclerotherapy Date/Time: 10/06/2020 11:27 AM Performed by: Dakotah Toth MD Authorized by: Dakotah Toth MD Time out: Immediately prior to the proce dure a time out was called ?? Type: ??Medically Necessary Vein: ??Multiple Veins Yes ?? Procedure side: ??Bilateral Solution/Amount: ??1% POLIDOCANOL Syringes:: ??3 syringes (9ml) Patient tolerance: ??Patient tolerated t he procedure well with no immediate complications Dakotah Toth MD PROCEDURE/MINOR SURGICAL O RDERABLES documented in this encounter Visit Diagnoses Diagnosis Varicose veins of right lower extremity with pain Varicose veins of lower extremities with other complications Varicose veins of left lower extremity w ith pain Varicose veins of lower extremities with other complications documented in this encounter Administered Medications Inactive Administered Medications - up to 3 most recent administrations Medication Order MAR Action Action Date Dose Rate Site polidocanol (ASCLERA) 10 mg/mL Given 10/06/2020 11:37 AM JDE DEVELOPER 3 m Ls injection 3 mL 3 mL, Intravenous, ONCE, On Krissy 10/06/20 at 1200, For 1 dose polidocanol (ASCLERA) 5 mg/mL injection 2 mL Given 10/06/2020 11:38 AM JDE DEVELOPER 2 mLs 2 mL, Intravenous, ONCE, On Krissy 10/06/20 at 1200, For 1 dose documented in this encounter Care Teams Health Care Analyst Relationship Specialty Start Date End Date Madhuri Retana, PCP - General Family Practice 06/03/[address] [facility] [address] [place] [address] Dakotah Toth Assigned Heart and Vascular 0 MD Greyson Provider [address] [facility] [address] [address] documented as of this encounter
--- OUTSIDE RECORDS SUMMARY | 2022-06-14 08:04 | XMS_ITS | Encounter Summary ---
:1970 Author Organization [facility] Address [address] [place] [address] Care Team Providers Name Role Phone Madhuri Retana MD Primary Care Provider [phone] Dakotah Toth MD Unavailable [phone] Encounter Details Date Type Department Care Team Description 08/18/2020 Travel Social History Tobacco Use Types Packs/Day Years Used Date Smoking Tobacco: Never Assessed Sex Assigned at Date Recorded Not on file COVID-19 Exposure Response Date Recorded In the last month, have you been in contact with No / Unsure 08/18/2020 9:08 AM TRAINING AND DEVELOPMENT OFFICER someone who was confirmed or suspected to have Coronavirus / COVID-19? documented as of this encounter Plan of Treatment Upcoming Encounters Date Type Specialty Care Team Description 06/21/2022 Office Visit Vascular Surgery Kim Toth MD [address] [place], [place] [address] (Wo rk) documented as of this encounter Visit Diagnoses Not on filedocumented in this encounter Care Teams Neighborhood Coordinator Relationship Specialty Start Date End Date Madhuri Retana, PCP - General Family Practice 06/03/[address] [facility] MED[facility] [address] [place] [address] Dakotah Toth Assigned Heart and Vascular 0 MD Greyson Provider [address] [place] [address] documented as of this encounter
--- OUTSIDE RECORDS SUMMARY | 2022-06-14 08:04 | XMS_ITS | Encounter Summary ---
:1970 Author Organization [facility] Address [address] [place] [address] Care Team Providers Name Role Phone Madhuri Retana MD Primary Care Provider [phone] Dakotah Toth MD Unavailable [phone] Reason for Visit Diagnostic Imaging Ultrasound (Routine) - Closed Specialty Diagnoses / Procedures Referred By Contact Refer red To Contact Diagnoses Varicose veins of both lower extremities with complications Dakotah Toth Procedures US Venous Competency Bilateral MD Greyson [address] [place] [address] Referral ID Status Reason Start Date Expiration Date Visits Requ ested Visits Authorized [id number] Closed 07/28/2020 07/28/2021 1 1 Encounter Details Date Type Department Care Team Description 08/18/2020 Ancillary [facility] Nicolas Toth v eins of Procedure [place] [facility] Dakotah Rubi, both lower Solutions extremities with [address] [facility] [address] compli [facility] [address] [facility] [address] [place] [address] [place] [phone] (Work) [phone] Social History Tobacco Use Types Packs/Day Years Used Date Smoking Tobacco: Never Assessed Sex Assigned at Date Recorded Not on file COVID-19 Exposure Response Date Recorded In the last month, have you been in contact with No / Unsure 08/18/2020 9:08 AM SUPERVISOR BLEACH PLANT someone who was confirmed or suspected to have Coronavirus / COVID-19? documented as of this encounter Plan of Treatment Upcoming Encounters Date Type Specialty Care Team Description 06/21/2022 Office Visit Vascular Surgery Kim Toth MD [address] [place] [address] (Wo rk) documented as of this encounter Procedures Procedure Name Priority Date/Time Associated Diagnosis Comme nts US VENOUS Routine 08/18/2020 11:14 Varicose veins of both R esults for this COMPETENCY AM SUPERVISOR BLEACH PLANT lower extremities with proce dure are in BILATERAL complications the results section. documented in this encounter Results US Venous Competency Bilateral (08/18/2020 11:14 AM SUPERVISOR BLEACH PLANT) Anatomical Region Laterality Modality Lower Extremity Ultrasound Specimen (Source) Anatomical Location Collection Method / Collectio n Time Received Time / Laterality Volume Impressions 08/18/2020 12:16 PM SUPERVISOR BLEACH PLANT ? Exa mined by: JOURDAN Age: ??50 [...] There is no evidence of inc ompetent induction heat treater veins at any level. ?? LEFT: ?? [...] There is no evidence of inc ompetent induction heat treater veins at any level. ?? FINAL SUMMARY: [...] milliseconds in length. Narrative 08/18/2020 12:16 PM SUPERVISOR BLEACH PLANT Name: ??Sonia Larios ? Date: August 18, 2020 ?: [birth year] 68 Sex: female Dakotah Toth MD [facility] ORDERABLES documented in this encounter Visit Diagnoses Diagnosis Varicose veins of both lower extremities with complications documented in this encounter Care Teams Dental Therapist Relationship Specialty Start Date End Date Madhuri Retana, PCP - General Family Practice 06/03/20 [facility] [address] [place] [address] Dakotah Toth Assigned Heart and Vascular 0 MD Greyson Provider [address] [facility] [address] [place], [place] [address] documented as of this encounter
--- OUTSIDE RECORDS SUMMARY | 2022-06-14 08:04 | XMS_ITS | Clinical Summary ---
:1970 Author Organization [facility] Address [address] [place] [address] Care Team Providers Name Role Phone Madhuri Retana MD Primary Care Provider [phone] Dakotah Toth MD Unavailable Allergies Active Allergy Reactions Severity Noted Date [...] Assigned at Date Recorded Not on file Plan of Treatment Upcoming Encounters Date Type Specialty Care Team Description 06/21/2022 Office Visit Vascular Surgery Kim Toth MD [address] [address] (Wo rk) Health Maintenance Due Date Last [...] Addre ss Type Dates PREFERREDONE PREFERREDONE NON [id number] 2020-Pre [phone] [address] HMO [place] sent [phone] [place] [address] [phone] [address] [facility] [address] [phone] [place], [place] (Work) [address] Care Teams Commercial Technician Relationship Specialty Start Date End Date Madhuri Retana, PCP - General Family Practice 06/03/20 [facility] [address] [place] [address] Dakotah Toth Assigned Heart and Vascular 0 MD Greyson Provider [address] [address]
--- OUTSIDE RECORDS SUMMARY | 2022-06-14 08:04 | XMS_ITS | Encounter Summary ---
:1970 Author Organization [place] Address [address] [facility] [place] [address] Care Team Providers Name Role Phone Madhuri Retana MD Primary Care Provider [phone] Dakotah Toth MD Unavailable Reason for Visit Reason Comments RECHECK cristina. us results Encounter Details Date Type Department Care Team Description 09/01/2020 Virtual Visit [facility] Janey, Varicose veins of both Vein Clinic Fátima Rubi, [facility] e xtremities with Sammi GOLD complications (Primary [id number] [facility] [address] Dx) [address] [id number] Social History Tobacco Use Types Packs/Day Years Used Date Smoking Tobacco: Never Assessed Sex Assigned at Date Recorded Not on file COVID-19 Exposure Response Date Recorded In the last month, have you been in contact with No / Unsure 08/18/2020 9:08 AM PATIENT SUPPORT ASSISTANT someone who was confirmed or suspected to [...] be resent by: Text to cell phone: [phone] Will anyone else be joining your video visit? No Video Start Time: 11:14 AM Video-Visit Details Type of service: Video Visit Video End Time:11:19 AM Originating Location (pt. Location): Home Distant Location (provider location): [facility] [place] Platform used for Video Visit: [facility] Clinic Note Sonia Larios presents in [...] by insurance. Dakotah Toth MD Dictated using SmartSynch voice recognition software which may result in energy control officer errors ENT SUPPORT ASSISTANT documented in this encounter Plan of Treatment Upcoming Encounters Date Type Specialty Care Team Description 06/21/2022 Office Visit Vascular Surgery Kim Toth MD [address] [place] [address] (Wo rk) documented as of this encounter Visit Diagnoses Diagnosis Varicose veins of both lower extremities with complications - Primary documented in this encounter Care Teams Pressure Control Supervisor Relationship Specialty Start Date End Date Madhuri Retana, PCP - General Family Practice 06/03/[address] [facility] [address] [place] [address] Dakotah Toth Assigned Heart and Vascular 0 MD Greyson Provider [address] [place] [address] documented as of this encounter
--- OUTSIDE RECORDS SUMMARY | 2022-06-14 08:04 | XMS_ITS | Encounter Summary ---
:1970 Author Organization [place] Address [address] [place] [address] Care Team Providers Name Role Phone Madhuri Retana MD Primary Care Provider [phone] Encounter Details Date Type Department Care Team Description 07/28/2020 Travel Social History Tobacco Use Types Packs/Day Years Used Date Smoking Tobacco: Never Assessed Sex Assigned at Date Recorded Not on file COVID-19 Exposure Response Date Recorded In the last month, have you been in contact with No / Unsure 07/28/2020 11:13 AM POWER SYSTEM ELECTRICAL ENGINEER someone who was confirmed or suspected to have Coronavirus / COVID-19? documented as of this encounter Plan of Treatment Upcoming Encounters Date Type Specialty Care Team Description 06/21/2022 Office Visit Vascular Surgery Kim Toth MD [address] [address] (Wo rk) documented as of this encounter Visit Diagnoses Not on filedocumented in this encounter Care Teams Cracking Unit Operator Relationship Specialty Start Date End Date Madhuri Retana MD PCP - General Family Practice 06/03/[address] [address] documented as of this encounter
--- NOTE | 2022-06-14 08:15 | CRLHL7_ITS ---
For Patients: As a result of the Century Cures Act, medical imaging exams and procedure reports are released immediately into your electronic medical record. You may view this report before your referring provider. If you have questions, please contact your health care provider. BILATERAL SCREENING MAMMOGRAM WITH COMPUTER-AIDED DETECTION TECHNIQUE: CC and MLO views were obtained. These mammographic images have been obtained using full-field digital technique. These mammographic images were interpreted with the benefit of computer-aided detection. COMPARISON FILM: 06/08/21, 06/02/20, 03/13/19. FINDINGS: The breasts are extremely dense, which lowers the sensitivity of mammography IMPRESSION: There is no radiographic evidence for malignancy. ASSESSMENT: BI-RADS Category 2: Benign RECOMMENDATION: Routine screening mammogram in 1 year. A lay language report of this examination will be provided to the patient. Oliver Vasquez M.D. Diagnostic Radiologist [email or web address] Transcribed: 7:44 p.m. MATT/Dictated by: Oliver Vasquez MD @ 06/14/2022 11:00:00 AM (Electronically Signed)
== END 2022-06-14 08:03 | disposition home or self-care (01) ==
PROVIDERS: PCP Family Medicine; Visit Provider Family Medicine
DX: Z12.31 Encounter for screening mammogram for malignant neoplasm of breast (principal); R92.2 Inconclusive mammogram
CPT/HCPCS: 77067

== ENCOUNTER 2022-10-02 07:35 | Outpatient (CLI) | payer OTHER, SELFPAY ==
[2022-10-02 11:44] LABS: Ferritin* 18.2 ng/mL (11.1-264.0)
== END 2022-10-02 07:36 | disposition home or self-care (01) ==
PROVIDERS: PCP Family Medicine; Visit Provider Family Medicine
DX: R79.0 Abnormal level of blood mineral (principal)
CPT/HCPCS: 82728

== ENCOUNTER 2022-10-08 15:45 | Outpatient (RCR) | payer OTHER, SELFPAY ==
--- NOTE | 2022-08-27 17:53 | PT.OPEX ---
Please sign the attached PT evaluation completed on 08/27/22. Thank you. PT [facility] Outpatient Eval PT [facility] Outpatient Eval Start: 08/27/22 11:10 Freq: Status: Active Protocol: Document 08/27/22 14:53 TLQ (Rec: 08/27/22 16:30 TLQ [id number]) E-signed By Stephany Lowery DPT Physical Therapy Outpatient Evaluation Insurance Information Recert Due Date 11/25/22 Insurance Name Preferred One Medical Diagnosis Radiculopathy, cervical region Treating Diagnosis Cervical radiculopathy Stiffness in lower cervical spine Referring MD [place] Subjective Subjective Shireen has been having shooting pains down her left arm since the end of June,. Pain is not present all the time, is primarily located on the left side of her neck and can shoot down her arm to her fingers at times. Gets pins and needles feeling in her arm, needs to raise it up and shake her arm out to make the feeling go away. Started Prednisone last week, has noticed a decrease in the number of times each day she gets the shooting pain sensation. Frequency of shooting pains used to be 10- 20x per day, now down to 2-3x. Pain increases if she tilts her head toward her left, when leaning forward with weight on her arms, or when typing at her computer. Had x-ray taken on 08/24/22, findings of arthritis. Symptoms impact the patient's sleep quality, can wake her up sometimes 3-4x per night, worse if she lays on her left side. Finds symptom relief with use of pain medication and ice. Symptoms have begun to impact her physical activity, likes to walk on the treadmill but her arm goes numb within a few minutes. 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 [employer] Preferred Name Shireen Precautions Therapy Limitations/Systems Review Not Limited Objective Range of Motion Cervical AROM: flexion - 55 degrees extension - 50 degrees, symptoms reproduced at 40 degrees, tricep region rotation - L 64 degrees, R 75 degrees lateral flexion - L 20 degrees bicep region, R 40 degrees L shoulder AROM: flexion - 160 abduction - 174, numbness in 1st and 2nd digits at 110 degrees internal rotation - T4 external rotation - T8 Strength Cervical strength: flexion - 5 extension - 5 lateral flexion - 5 B rotation - L 4+, R 5 L shoulder strength: flexion - 5 abduction - 4+ internal rotation - 4 external rotation - 4+ Bed Bug Exterminator strength (average of 3): L 47.3# R (dominant hand) 47.3# Other/Pertinent Objective Vertebral artery test (-) Sharp-broderick (-) Quadrant (+) for symptom reproduction Cervical distraction: no change in symptoms ULTT (-) on L Tigre test (-) on L Castillo's hyperabduction test ( -) on L Cosctoclavicular compression test (-) on L TTP: L upper trapezius Increased tone in L upper trapezius and cervical extensors Joint mobility: hypomobile down glide on L C5/C6/C7 UE sensation: screened and intact to light touch Functional Test Performed & Score NDI: 14% (mild) Assessment Assessment/Impression Shireen is a 52 year old female who presents to physical therapy with signs and symptoms of cervical radiculopathy impacting her left upper extremity, symptom onset occurred two months ago, no specific trauma to the affected area. 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 She recently had an x-ray taken of her cervical spine, with findings of mild spurring at C5-C7. Her symptoms increase with quick movements of her neck toward her left side, worsened during examination with side ending and extension . Patient reported radicular symptoms follow nerve distribution consistent with x -ray findings, C5/C6/C7. Additionally, she had hypomobility and reproduction of pain with downglide on the left side of her lower cervical spine. I provided her with gentle stretches to reduce muscle tone in addition to postural strength exercises. She will benefit from skilled PT interventions to reduce muscle tightness, increase pain-free ROM, and reduce frequency of radicular symptoms for increased participation in daily activities. Primary Functional Limitations neck pain, left arm pain, numbness/tingling in right arm , limited cervical lateral flexion, stiffness in lower cervical spine, pain with cervical extension, decreased quality of sleep Plan of Care Rehabilitation Potential Good Physical Therapy Goals In 3-4 visits: - Patient will report improved quality of sleep, waking up no more than 1-2x per night due to symptoms. - Patient will decrease subjective report of pain from 6/10 to 4/10 for increased tolerance to work responsibilities. In 6-8 visits: - Patient will improve L cervical lateral flexion AROM to be within functional limits for improved mobility. - Patient will be able to walk up to 20 minutes on the treadmill prior to symptom onset for return to preferred physical activities. - Patient will report no more than 1 shooting pain per day for improved tolerance to cervical movement. - Shireen will adhere to HEP to manage symptoms IND at home. Treatment Plan/Direct Interventions Electrical Stimulation,Joint Mobilization,Manual Therapy, Neuromuscular Re-ed,Self-Care/ Home Management,Therapeutic Activities,Therapeutic Exercises,Traction (Mechanical ) Frequency/Duration 1x/week for 6-8 visits Patient Will Be Discharged From Therapy Completion of LTG(s),Skills Plateau,Independent w/HEP, Independently Progressing Evaluation Billing Untimed Code Treatment Minutes 28 Complexity Low Certification Information Initial Certification Date 08/27/22 Ending Certification Date 11/25/22 Provider Signature Shows Agreement With POC & Medical Necessity Physician Signature & Date Requested Please Sign/Date Here Physician Comment/Change : Physician NPI Number #
== END 2022-11-16 12:32 | disposition home or self-care (01) ==
PROVIDERS: PCP Family Medicine; Visit Provider Family Medicine
DX: M54.12 Radiculopathy, cervical region (principal); Z51.89 Encounter for other specified aftercare
CPT/HCPCS: 97110; 97140; 97161

== ENCOUNTER 2022-12-13 07:55 | Outpatient (CLI) | payer OTHER, SELFPAY | END 2022-12-13 07:56 | disposition home or self-care (01) | LOC: OP CLINIC 07:55 | PROVIDERS: PCP Family Medicine; Visit Provider Surgery | DX: Z12.11 Encounter for screening for malignant neoplasm of colon (principal); K63.5 Polyp of colon; K64.9 Unspecified hemorrhoids; Z80.0 Family history of malignant neoplasm of digestive organs; Z86.010 Personal history of colon polyps | CPT/HCPCS: 45385; 88305; 99153; J1200; J2250; J3010 ==

== ENCOUNTER 2023-05-10 08:00 | Outpatient (CLI) | payer OTHER, SELFPAY | END 2023-05-10 08:01 | disposition home or self-care (01) | LOC: NFLDREF 05-13 01:05 | PROVIDERS: PCP Family Medicine; Referring Provider Family Medicine; Visit Provider Family Medicine | DX: Z00.00 Encounter for general adult medical examination without abnormal findings (principal); I10 Essential (primary) hypertension; E55.9 Vitamin D deficiency, unspecified; R79.0 Abnormal level of blood mineral; Z13.6 Encounter for screening for cardiovascular disorders | CPT/HCPCS: 80048; 80061; 82306 ==

== ENCOUNTER 2023-05-16 08:07 | Outpatient (CLI) | payer OTHER, SELFPAY ==
--- NOTE | 2023-05-16 08:45 | CRLHL7_ITS ---
For Patients: As a result of the Century Cures Act, medical imaging exams and procedure reports are released immediately into your electronic medical record. You may view this report before your referring provider. If you have questions, please contact your health care provider. BILATERAL SCREENING MAMMOGRAM WITH COMPUTER-AIDED DETECTION TECHNIQUE: CC and MLO views were obtained. These mammographic images have been obtained using full-field digital technique. These mammographic images were interpreted with the benefit of computer-aided detection. COMPARISON FILM: 06/14/22, 06/08/21, 06/02/20. FINDINGS: The breasts are heterogeneously dense, which may obscure small masses IMPRESSION: There is no radiographic evidence for malignancy. ASSESSMENT: BI-RADS Category 1: Negative RECOMMENDATION: Routine screening mammogram in 1 year. A lay language report of this examination will be provided to the patient. Oliver Vasquez M.D. Diagnostic Radiologist [email or web address] RD/[email or web address] Transcribed: 2:52 p.sunny sheridan/Dictated by: Oliver Vasquez MD @ 05/16/2023 12:20:00 PM (Electronically Signed)
== END 2023-05-16 08:08 | disposition home or self-care (01) ==
LOC: MAMMO 08:08
PROVIDERS: PCP Family Medicine; Visit Provider Family Medicine
DX: Z12.31 Encounter for screening mammogram for malignant neoplasm of breast (principal); R92.2 Inconclusive mammogram
CPT/HCPCS: 77063; 77067

== ENCOUNTER 2023-07-22 06:13 | Day surgery (SDC) | payer OTHER, SELFPAY ==
[2023-07-22] VITALS (12 sets, daily range): BP systolic 99–129; BP diastolic 48–72; PULSE 64–90; RESP 16; TEMP 36.3–36.9; O2SAT 97–100; BMI 26.4
[2023-07-22] MEDS: LACTATED RINGERS 1000 ML 1,000 ML 100 ML IV (06:45)
[2023-07-22] MEDS: SODIUM CHLORIDE 0.9 % (FLUSH) 10 ML SYRINGE IVF (06:46)
--- NOTE | 2023-07-22 07:34 | W.PM.H&PU ---
History & Physical Update History & Physical Update H&P Reviewed and patient assessed: No changes noted
--- NOTE | 2023-07-22 07:34 | PM.GSPRC ---
Operative Note Pre-op diagnosis: 1. Symptomatic external hemorrhoids 2. Symptomatic right thigh and right labia majora skin tags. Post-op diagnosis: Same Type of Procedure: 1. Excision of right thigh skin tag. 2. Excision of right labia majora skin tag. 3. 2 quadrant External hemorrhoidectomy. Indications: 53-year-old female was seen in clinic for evaluation of redundant external hemorrhoids and skin tags in the right thigh and right labia. Patient had those present for a long time but during her recent travel had a flare of her hemorrhoids. She had perianal pain and that was described as sitting on an egg. The pain inflammation was severe and prompted her to come to our clinic. She used perforation H and cold packs turn her flare. She has been having regular bowel movements and denies any straining. Patient had high-fiber diet and normally drinks a lot of water. Patient also was bothered by skin tags in the right thigh and right labia. On clinical exam and patient's perianal skin was examined and revealed enlarged resolving thrombosed hemorrhoid right posterior laterally and left laterally. On the right labia majora at the introitus there was a 5 mm diameter skin tag that was bothering the patient. In the right medial thigh there was a 4 mm skin tag noted. No inflammation or lesions suspicious for cancer were noted. Given patient's clinical symptoms and persistence of those symptoms despite optimal medical treatment, 2 quadrant hemorrhoidectomy was recommended. We also discussed excision of right medial skin tag and right labial skin tag at the same time. The procedure was discussed in detail. The risks associated procedure including infection, bleeding, symptom recurrence, and temporary incontinence were all discussed with the patient, and she agreed to proceed. Procedure Description: After discussing the risks and benefits of the procedure, the patient signed informed consent.? The operative site was marked and the patient was brought to the operating room and placed on the operating table in supine position.? Spinal anesthesia was administered by anesthesia. Surgical site was prepped and draped in the usual sterile fashion. A time-out was performed. We first proceeded with excising the skin tags from the right thigh and right labia majora. Local anesthetic was injected at the base of the skin tag at the right labia majora. The skin tag was then excised with a scalpel. The skin tag was approximately 5 x 4 mm in size. Similarly, the right medial thigh skin tag was excised. The skin tag was about 4 x 3 mm. Both skin tags were sent to pathology in the same jar. Hemostasis was achieved with pressure. Bacitracin was placed over the incisions and gauze was placed over the incisions. The patient was then placed in the prone position on the operating table with all pressure points padded. Surgical site was prepped and draped in the usual sterile fashion. We then proceeded with 2 quadrant hemorrhoidectomy. External examination, digital rectal examination, and anoscopic examination were all done and revealed significantly redundant External hemorrhoidal tissue right posterior laterally and left laterally. Both external hemorrhoids were excised in a similar fashion. An elliptical incision was made with a needle tip electrocautery from the anoderm up into the anal canal just above the dentate line. Careful dissection of the hemorrhoid complex was done in the plane between the internal anal sphincter and the submucosal vascular plexus up to just above the dentate line in each quadrant described above. Having established the proper plane, the hemorrhoidal tissue was then excised with the Ligasure device and sent to Pathology for analysis. Care was taken to preserve mucosa for a tension-free closure. The internal sphincter fibers were visualized at the base of the wound and were intact. The wound was closed in a running locked manner starting at the apex (proximal aspect of elliptical excision) with 3-0 chromic suture, coming out to the anoderm and then running back up in a simple fashion and tying down at the apex. Hemostasis was excellent. A mixture of Marcaine and Exparel was then injected around the incisions and for bilateral pudendal nerve block. Dry gauze was placed over the incisions. ? The patient was then woken and transported to the recovery area in stable condition. ? The patient tolerated the procedure well. Anesthesia: local and spinal Surgeon: Henri Zaidi MD Estimated blood loss (mL): 5 Additional Specimen Information: 1. Right thigh and right labia majora skin tags. 2. 2 quadrant hemorrhoidectomy. Condition: stable Disposition: PACU Date of procedure: 07/22/23
[2023-07-22] MEDS: BUPIVACAINE LIPOSOME 133 MG/10 ML INJ INFILTRATI (08:03)
[2023-07-22] MEDS: BUPIVACAINE 0.25 %/EPI 1:200K 30 ml INJECTION (08:03)
[2023-07-22] MEDS: HYDROCODONE-ACETAMIN 5-325 MG 1 TAB PO (09:45)
--- NOTE | 2023-07-22 10:04 | W.ANESCHARGE ---
Anesthesia Charges Start Date/Time Anesthesia Start Date: 07/22/23 Anesthesia Start Time: 07:32 Stop Date/Time Anesthesia Stop Date: 07/22/23 Anesthesia Stop Time: 08:34
== END 2023-07-22 10:35 | disposition home or self-care (01) ==
PROVIDERS: PCP Family Medicine; Visit Provider Surgery
PROC: (CPT 11200; principal; 2023-07-22 07:30)
PROC: (CPT 11200; 2023-07-22 07:30)
DX: K64.4 Residual hemorrhoidal skin tags (principal); L91.8 Other hypertrophic disorders of the skin
CPT/HCPCS: 11200; 46250; 88304; 902; A9270; C9290; J0330; J1100; J2250; J2405; J2704; J3010; J3490; J7120

== ENCOUNTER 2023-12-19 07:55 | Outpatient (CLI) | payer OTHER, SELFPAY ==
--- OUTSIDE RECORDS SUMMARY | 2023-12-19 07:57 | XMS_ITS | Referral Summary ---
Author Name Unknown Organization [place] Address [address] [place] [address] Care Team Providers Care Bakery Helper Name Role Phone Madhuri Retana MD Primary Care Provider + Dakotah Toth MD Unavailable [phone] Allergies Active Allergy Reactions Criticality Noted Date Comments Amoxicillin 07/28/2020 Codeine 07/28/2020 Penicillins 07/28/2020 Medications Medication Sig Dispensed Refills Start Date End Date Status valACYclovir (VALTREX) 1000 mg tablet 07/19/2020 Active amLODIPine (NORVASC) 5 MG tablet Take 5 mg by mouth daily Active cyanocobalamin (VITAMIN B-12) 1000 MCG tablet Take by mouth daily Activ e UNABLE TO FIND MEDICATION NAME: Multivitamins Active cholecalciferol (VITAMIN D3) 25 mcg (1000 units) capsule Take 2 capsules by mouth daily Active Social History Tobacco Use Types Packs/Day Years Used Date Smoking Tobacco: Never Smokeless Tobacco: Never Adolescent Education Answer Date Record ed Getting School Help Needed Not on file 05/03 Sex and Gender Information Value Date Recorded Sex Assigned at Not on file Gender Identity Not on file Sexual Orientation Not on file Plan of Treatment Not on file Care Teams Bakery Helper Relationship Specialty Start Date End Date Madhuri Retana MD [facility] [address] [place] [address] PCP - General Family Practice 06/03/20 Dakotah Toth MD [address] [facility] [place] [address] Assigned Heart and Vascular Provider 07/31/20
--- OUTSIDE RECORDS SUMMARY | 2023-12-19 07:57 | XMS_ITS | Clinical Summary ---
Author Name Unknown Organization [place] Address [address] [place] [address] Care Team Providers Care Informatics Application Analyst Name Role Phone Madhuri Retana MD Primary Care Provider + Dakotah Toth MD Unavailable [phone] Allergies Active Allergy Reactions Criticality Noted Date [...] Orientation Not on file Plan of Treatment Health Maintenance Due Date Last Done Comments ADVANCE CARE PLANNING 1970 ANNUAL REVIEW OF HM ORDERS 1969 CT COLONOGRAPHY 1969 FIT 1969 FLEX SIG 1970 GLUCOSE 1970 MAMMO SCREENING 1970 YEARLY PREVENTIVE VISIT 1969 sDNA (Cologuard) 1970 COLONOSCOPY 1979 COLORECTAL CANCER SCREENING 1979 HIV SCREENING 1984 HEPATITIS C SCREENING 1987 HEPATITIS B IMMUNIZATION (1 of 3 - 19+ 3-dose series) 1988 PAP 1990 LIPID 2009 COVID-19 Vaccine (2022- season) 2023 06/29/2021, 05/23/2021, 09/20/2020, Additional history exists INFLUENZA VACCINE (#1) 2023 , 05/25/2021, 05/26/2019, Additional history exists PHQ-2 (once per calendar year) 2023 DTAP/TDAP/TD IMMUNIZATION (3 - Td or Tdap) 05/31/2032 05/31/2022, 12/26/2011 ZOSTER IMMUNIZATION Completed 11/10/2020, 08/25/2020, 06/02/2020 HPV IMMUNIZATION Aged Out No longer e ligible based on patient's age to complete this topic IPV IMMUNIZATION Aged Out No longer e ligible based on patient's age to complete this topic MENINGITIS IMMUNIZATION Aged Out No l onger eligible based on patient's age to complete this topic Pneumococcal Vaccine: Pediatrics (0 to 5 Years) and At-Risk Patients (6 to 64 Years) Aged Out No longer eligible based on patient's age to complete this topic RSV MONOCLONAL ANTIBODY Aged Out No l onger eligible based on patient's age to complete this topic Care Teams Informatics Application Analyst Relationship Specialty Start Date End Date Madhuri Retana MD [facility] [address] [place] [address] PCP - General Family Practice 06/03/20 Dakotah Toth MD [address] [address] Assigned Heart and Vascular Provider 07/31/20
--- NOTE | 2023-12-19 09:46 | W.ANESCHARGE ---
Anesthesia Charges Start Date/Time Anesthesia Start Date: 12/19/23 Anesthesia Start Time: 08:50 Stop Date/Time Anesthesia Stop Date: 12/19/23 Anesthesia Stop Time: 09:30
--- NOTE | 2023-12-19 10:12 | W.ANESCHARGE ---
Anesthesia Charges Start Date/Time Anesthesia Start Date: 12/19/23 Anesthesia Start Time: 08:50 Stop Date/Time Anesthesia Stop Date: 12/19/23 Anesthesia Stop Time: 09:30
== END 2023-12-19 07:56 | disposition home or self-care (01) ==
LOC: OP CLINIC 07:55
PROVIDERS: PCP Family Medicine; Visit Provider Surgery
DX: K63.5 Polyp of colon (principal); Z86.010 Personal history of colon polyps; Z98.890 Other specified postprocedural states
CPT/HCPCS: 00811; 45385; 88305; J2704

== ENCOUNTER 2023-12-20 12:44 | Outpatient (CLI) | payer OTHER, SELFPAY ==
--- OUTSIDE RECORDS SUMMARY | 2023-12-20 12:47 | XMS_ITS | Referral Summary ---
Author Name Unknown Organization [facility] Address [address] [place] [address] Care Team Providers Care Sports Medicine Specialist Name Role Phone Madhuri Retana MD Primary Care Provider + Dakotah Toth MD Unavailable [phone] Allergies Active Allergy Reactions Criticality Noted Date [...] of Treatment Not on file Care Teams Sports Medicine Specialist Relationship Specialty Start Date End Date Madhuri Retana MD [facility] [address] [place] [address] PCP - General Family Practice 06/03/20 Dakotah Toth MD [address] [facility] [place] [address] Assigned Heart and Vascular Provider 07/31/20
--- OUTSIDE RECORDS SUMMARY | 2023-12-20 12:47 | XMS_ITS | Clinical Summary ---
Author Name Unknown Organization [place] Address [address] [place] [address] Care Team Providers Care Telephonic Case Manager Name Role Phone Madhuri Retana MD Primary Care Provider + Dakotah Toth MD Unavailable [phone] Allergies Active Allergy Reactions Criticality Noted Date [...] 1988 PAP 1990 LIPID 2009 COVID-19 Vaccine ( season) 2023 06/29/2021, 05/23/2021, 09/20/2020, Additional history exists PHQ-2 (once per calendar year) 2023 INFLUENZA VACCINE (Season Ended) 2024 05/31/2022, 05/25/2021, 05/26/2019, Additional history exists DTAP/TDAP/TD IMMUNIZATION (3 - Td or Tdap) [...] age to complete this topic Care Teams Telephonic Case Manager Relationship Specialty Start Date End Date Madhuri Retana MD [facility] [address] [place] [address] PCP - General Family Practice 06/03/20 Dakotah Toth MD [address] [address] Assigned Heart and Vascular Provider 07/31/20
--- NOTE | 2023-12-20 13:00 | MR_ITS ---
[address] [address] Phone:?[phone] Fax:?[phone] Referring Physician Information: Miguel Thompson D.C. [address] [facility] [address] [facility] [address] Phone:?[phone] Fax:?[phone] Patient:Umair Larios D.O.B:?1970 Sex:?Female Phone:?[phone] [facility] MRN:?[id number] Exam Date:?12/20/2023 EXAM: MRI EXAMINATION OF THE LEFT SHOULDER CLINICAL INFORMATION: Left shoulder pain. No history of surgery to this area. Evaluate possible rotator cuff tear or rupture. TECHNICAL INFORMATION: Coronal STIR. Axial, sagittal and coronal PD and T2- weighted images acquired. No prior studies for comparison. INTERPRETATION: Bones: There is no Hill-Sachs impaction deformity. No other evidence for an occult fracture or osseous contusion. No other bone marrow edema pattern. Rotator Cuff: There is a mild to moderate appearance of supraspinatus tendinopathy, without evidence for a tendon tear. The infraspinatus tendon is intact without tear or significant tendinopathy. The teres minor tendon is intact. There is a 7 mm craniocaudal segment of partial-thickness tearing and fraying involving the superior subscapularis tendon. No appreciable rotator cuff muscle belly atrophy. Coracoacromial arch: There is no discrete subacromial osseous spur. The bony acromiohumeral interval is measuring 1 cm. There is no thickening identified of the coracoacromial ligament. Acromioclavicular joint: Mild AC joint DJD. No deformity of the underlying supraspinatus tendon. Mild to moderate thickening and edema signal involves the subacromial/subdeltoid bursa areas. Biceps tendon: There is mild thickening as well as longitudinal splitting of the long head biceps tendon along the mid to superior bicipital groove. There is no tendon subluxation from the bicipital groove. There is a mild appearance of intra-articular tendinopathy. There is a marked appearance of bicipital tenosynovitis. Glenohumeral joint and labrum: There is a moderate glenohumeral joint effusion. No discrete loose body within the joint. Osteochondral surfaces appear relatively preserved. No discrete SLAP tear. There is marked blunting and degeneration throughout the posterior aspect labrum without a more discrete tear. No discrete paralabral cyst is identified. CONCLUSION: 1. Long head biceps tendinopathy. Mild thickening and longitudinal splitting along the mid to superior bicipital groove. Additional mild intra-articular tendinopathy. Marked tenosynovitis. 2. There is a small segment of partial-thickness tearing and fraying involving the far superior subscapularis tendon. Additional mild to moderate supraspinatus tendinopathy. 3. Mild AC joint DJD without abnormal narrowing of the acromiohumeral interval. Mild to moderate subacromial/subdeltoid bursitis. 4. No appreciable glenohumeral chondromalacia. There is a moderate joint effusion. 5. Marked blunting and degeneration throughout the posterior labrum without a more discrete tear. KES Electronically signed on 12/24/2023 1:11:00 PM by Addison David M.D.
== END 2023-12-20 12:45 | disposition home or self-care (01) ==
LOC: MRI 12:45
PROVIDERS: PCP Family Medicine; Visit Provider Chiropractor
DX: M25.512 Pain in left shoulder (principal); M75.112 Incomplete rotator cuff tear or rupture of left shoulder, not specified as traumatic; M65.812 Other synovitis and tenosynovitis, left shoulder; M19.012 Primary osteoarthritis, left shoulder; M25.412 Effusion, left shoulder; M99.01 Segmental and somatic dysfunction of cervical region; M54.12 Radiculopathy, cervical region
CPT/HCPCS: 73221

== ENCOUNTER 2024-01-13 06:13 | Day surgery (SDC) | payer OTHER, SELFPAY ==
[2024-01-13] VITALS (15 sets, daily range): BP systolic 87–120; BP diastolic 46–74; PULSE 51–73; RESP 14–16; TEMP 36–36.6; O2SAT 94–99; BMI 26.7
--- OUTSIDE RECORDS SUMMARY | 2024-01-13 06:16 | XMS_ITS | Clinical Summary ---
Author Organization [place] Address [address] [place] [address] Care Team Providers Care Landscape Architect And Planner Name Role Phone Madhuri Retana MD Primary Care Provider + Allergies Active Allergy Reactions Criticality Noted Date [...] age to complete this topic Care Teams Landscape Architect And Planner Relationship Specialty Start Date End Date Madhuri Retana MD [facility] [address] [place] [address] PCP - General Family Practice 06/03/20
--- OUTSIDE RECORDS SUMMARY | 2024-01-13 06:16 | XMS_ITS | Referral Summary ---
Author Organization [place] Address [address] [place] [address] Care Team Providers Care Grain Operations Manager Name Role Phone Madhuri Retana MD [...] of Treatment Not on file Care Teams Grain Operations Manager Relationship Specialty Start Date End Date Madhuri Retana MD [facility] [address] [place] [address] PCP - General Family Practice 06/03/20
[2024-01-13] MEDS: LACTATED RINGERS 1000 ML 1,000 ML 100 ML IV (06:35)
[2024-01-13] MEDS: SODIUM CHLORIDE 0.9 % (FLUSH) 10 ML SYRINGE IVF (06:55)
--- NOTE | 2024-01-13 07:05 | W.PM.H&PU ---
History & Physical Update History & Physical Update H&P Reviewed and patient assessed: No changes noted
[2024-01-13] MEDS: CEFAZOLIN 2 GM INJ IVP (07:40)
[2024-01-13] MEDS: BUPIVACAINE 0.25% 30 ML INJECTION (08:05)
--- NOTE | 2024-01-13 08:24 | P.GSOP_ITS ---
Operative Note Date of procedure: 01/13/24 Pre-op diagnosis: 1. Appendiceal orifice sessile serrated adenoma. Post-op diagnosis: Same Type of Procedure: 1. Laparoscopic appendectomy. Indications: 53-year-old female recently underwent a colonoscopy. She had an appendiceal orifice polyp removed that came back as sessile serrated adenoma by pathology. The polyp was thought to be removed completely but it was difficult to tell if any parts of the polyp were growing into the appendix. Given this finding, laparoscopic appendectomy was recommended. The procedure was discussed in detail. The risks associated procedure including infection, bleeding, injury to intra-abdominal organs, and the need for additional procedures were all dis cussed with the patient, and she agreed to proceed. Procedure Description: After discussing the risks and benefits of the procedure, the patient signed informed consent.? The operative site was marked and the patient was brought to the operating room and placed on the operating table in supine position.? Care was taken to pad the patient's pressure points.?? The patient was then intubated by anesthesia.?? The operative site was then prepped and draped in the usual sterile fashion.? A time-out was then performed. A 5-mm laparoscopy port was placed in the left upper quadrant guided by a 5-mm laparoscope placed into a translucent trochar. Passage through the layers of the abdominal wall was visualized with the laparoscope. A pneumoperitoneum was established. A 30-degree 5-mm laparoscope was advanced into the abdomen. The abdomen was briefly surveyed, and omental adhesions and small bowel adhesions were noted in the lower abdomen from patient's previous . A 12-mm port and a 5-mm port were placed in the right lower quadrant and left low quadrant away from the adhesions, respectively, under direct visualization by laparoscope. Left upper quadrant entrance port was then examined intraabdominally by placing the camera through the left lower quadrant port and no intraabdominal injury was seen. The patient was placed in Trendelenburg position, allowing the abdominal contents to shift cephalad. The small bowel was moved toward the midline in the abdomen. The right ureter was easily visualized. The appendix was identified and was not inflamed. The appendix was grasped and dissected from the peritoneum using Harmonic scalpel. Appendiceal mesentery was divided with Harmonic scalpel. There was no prominent appendiceal artery noted. When the appendiceal base was skeletonized, a vascular load Endo-DANNY stapler was advanced through the 12-mm port into the abdomen and appendix was stapled off at its base including a cuff of cecum. The appendix was then placed in an endoscopic retrieval bag and extracted from the abdomen through the 12-mm port. The abdomen was surveyed for hemostasis. And no bleeding was seen. The 12-mm port was withdrawn and the fascial defect was closed with a [id number] 0-0 Vicryl stitch. This closure was then examined intra- abdominally, and no intra-abdominal organs were incarcerated in the closure. The 5-mm port was removed under direct visualization. The left upper quadrant port was used to evacuate the pneumoperitoneum and then withdrawn. The skin incisions were closed with 4-0 monocryl. Steri-Strips were applied over the incisions. All counts were correct at the end of the case. The patient tolerated this procedure well and was transferred to PACU in stable condition. Findings: Noninflamed appendix. Adhesions in the inferior abdomen from previous C- section. Ventral hernia at the site of previous . Anesthesia: GETA Surgeon: Henri Zaidi MD Estimated blood loss (mL): 5 Specimen: Appendix Condition: stable Disposition: PACU
--- NOTE | 2024-01-13 08:32 | W.ANESCHARGE ---
Anesthesia Charges Start Date/Time Anesthesia Start Date: 01/13/24 Anesthesia Start Time: 07:27 Stop Date/Time Anesthesia Stop Date: 01/13/24 Anesthesia Stop Time: 08:29
[2024-01-13] MEDS: fentaNYL 100 MCG/2 ML inj 50 MCG IVP (08:46)
[2024-01-13] MEDS: HYDROCODONE-ACETAMIN 5-325 MG 1 TAB PO (09:47)
== END 2024-01-13 10:45 | disposition home or self-care (01) ==
PROVIDERS: PCP Family Medicine; Visit Provider Surgery
PROC: 0DTJ4ZZ Resection of Appendix, Percutaneous Endoscopic Approach (ICD-10-PCS; CPT 44970; principal; 2024-01-13 07:30)
DX: D12.1 Benign neoplasm of appendix (principal)
CPT/HCPCS: 44970; 00840; 88304; A9270; J0665; J0690; J1100; J1885; J2250; J2405; J2704; J2710; J3010; J7120

== ENCOUNTER 2024-03-26 08:36 | Outpatient (CLI) | payer OTHER, SELFPAY ==
--- OUTSIDE RECORDS SUMMARY | 2024-03-26 08:39 | XMS_ITS | Referral Summary ---
Author Organization [place] Address [address] [place] [address] Care Team Providers Care Ball Shagger Name Role Phone Madhuri Retana MD Primary [...] of Treatment Not on file Care Teams Ball Shagger Relationship Specialty Start Date End Date Madhuri Retana MD [facility] [address] [place] [address] PCP - General Family Practice 06/03/20
--- OUTSIDE RECORDS SUMMARY | 2024-03-26 08:39 | XMS_ITS | Clinical Summary ---
Author Organization [place] Address [address] [place] [address] Care Team Providers Care Scheduling Coordinator Name Role Phone Madhuri Retana MD Primary [...] 1988 PAP 1990 LIPID 2009 COVID-19 Vaccine (2022-24 season) 2023 06/29/2021, 05/23/2021, 09/20/2020, Additional history exists PHQ-2 (once per calendar year) 2023 INFLUENZA VACCINE (#1) 2024 , 05/25/2021, 05/26/2019, Additional history exists DTAP/TDAP/TD IMMUNIZATION [...] age to complete this topic Care Teams Scheduling Coordinator Relationship Specialty Start Date End Date Madhuri Retana MD [facility] [address] [place] [address] PCP - General Family Practice 06/03/20
--- NOTE | 2024-03-26 08:45 | CRLHL7_ITS ---
For Patients: As a result of the Century Cures Act, medical imaging exams and procedure reports are released immediately into your electronic medical record. You may view this report before your referring provider. If you have questions, please contact your health care provider. BILATERAL SCREENING MAMMOGRAM WITH COMPUTER-AIDED DETECTION AND TOMOSYNTHESIS TECHNIQUE: CC and MLO views were obtained. These mammographic images have been obtained using full-field digital technique. These mammographic images were interpreted with the benefit of computer-aided detection. Breast Tomosynthesis was used in this interpretation. COMPARISON FILM: 05/16/23, 06/14/22, 06/08/21. FINDINGS: The breasts are heterogeneously dense, which may obscure small masses IMPRESSION: There is no radiographic evidence for malignancy. ASSESSMENT: BI-RADS Category 1: Negative RECOMMENDATION: Routine screening mammogram in 1 year. A lay language report of this examination will be provided to the patient. Oliver Vasquez M.D. Diagnostic Radiologist [email or web address] Transcribed: 6:35 p.mCassandra sheridan/Dictated by: Oliver Vasquez MD @ 03/26/2024 11:45:00 AM (Electronically Signed)
== END 2024-03-26 08:37 | disposition home or self-care (01) ==
LOC: MAMMO 08:37
PROVIDERS: PCP Family Medicine; Visit Provider Family Medicine
DX: Z12.31 Encounter for screening mammogram for malignant neoplasm of breast (principal); R92.2 Inconclusive mammogram
CPT/HCPCS: 77063; 77067

== ENCOUNTER 2024-04-06 16:28 | Outpatient (CLI) | payer OTHER, SELFPAY ==
--- NOTE | 2024-04-06 16:30 | MR_ITS ---
[address] [address] Phone:?[phone] Fax:?[phone] Referring Physician Information: Myron Dumont M.D. [address] [facility] [address] Phone:?[phone] Fax:?[phone] Patient:Umair Larios D.O.B:?1970 Sex:?Female Phone:?[phone] [facility] MRN:?[id number] Exam Date:?04/06/2024 EXAM: MRI of the RIGHT SHOULDER, without contrast CLINICAL: Right shoulder pain status post injury. Evaluate for rotator cuff tear. COMPARISONS: X-rays dated 03/03/2024. TECHNICAL: Multiplanar multisequence MRI of the right shoulder was obtained. SEDATION: None. CONTRAST: None. FINDINGS: Evaluation of some of the obtained sequences is relatively limited by motion artifact. Rotator cuff: Supraspinatus/Infraspinatus: There is mild to moderate tendinosis and mild partial interstitial tearing of the distal supraspinatus and infraspinatus tendons. No significant fatty atrophy of the muscle bellies. Teres minor: No tendinosis, tear or atrophy. Subscapularis: Mild to moderate tendinosis without evidence of significant tendon tear. No significant fatty atrophy of the muscle belly. Bursae: Subacromial-subdeltoid: Minimal bursal edema. Subcoracoid: No significant bursal fluid. Coracoacromial arch: Acromion morphology: Type II. No os acromiale. Acromiohumeral space: Within normal limits. Coracohumeral space: Within normal limits. Biceps tendon, long head: Suspect mild tendinosis of the intra-articular tendon as visualized, with mild fluid about the imaged proximal extra-articular tendon. No evidence of tendon rupture or displacement. Glenohumeral joint: Physiologic volume of joint fluid. Articular cartilage: No discrete chondral defects identified as visualized. Capsule: No convincing evidence of capsular thickening or injury. Labrum: Evaluation is relatively limited. The posterior labrum is diffusely attenuated. Remainder of the labrum appears intact as visualized. No perilabral cyst identified. Bones: No suspicious marrow signal alteration, fracture or dislocation. Acromioclavicular joint: Mild changes of arthrosis. No AC joint widening. IMPRESSION: 1. Mild to moderate tendinosis and mild partial interstitial tearing of the distal supraspinatus and infraspinatus tendons. Mild to moderate tendinosis of the subscapularis tendon. 2. Suspect mild tendinosis of the intra-articular long head biceps tendon. 3. Diffusely attenuated appearance of the posterior labrum. 4. Mild AC joint arthrosis. JCZ Electronically signed on 04/07/2024 8:38:00 AM by Diaz Conklin D.O.
--- OUTSIDE RECORDS SUMMARY | 2024-04-06 16:30 | XMS_ITS | Clinical Summary ---
Author Organization [place] Address [address] [place] [address] Care Team Providers Care Radiologic Technology Teacher Name Role Phone Madhuri Retana MD Primary [...] calendar year) 2023 INFLUENZA VACCINE (#1) 2024 3, 05/31/2022, 05/25/2021, Additional history exists DTAP/TDAP/TD IMMUNIZATION (3 - [...] age to complete this topic Care Teams Radiologic Technology Teacher Relationship Specialty Start Date End Date Madhuri Retana MD [facility] [address] [place] [address] PCP - General Family Practice 06/03/20
--- OUTSIDE RECORDS SUMMARY | 2024-04-06 16:30 | XMS_ITS | Referral Summary ---
Author Organization [place] Address [address] [place] [address] Care Team Providers Care Litigation Support Analyst Name Role Phone Madhuri Retana MD [...] of Treatment Not on file Care Teams Litigation Support Analyst Relationship Specialty Start Date End Date Madhuri Retana MD [facility] [address] [place] [address] PCP - General Family Practice 06/03/20
== END 2024-04-06 16:29 | disposition home or self-care (01) ==
LOC: MRI 16:29
PROVIDERS: PCP Family Medicine; Visit Provider Orthopaedic Surgery Sports Medicine
DX: M25.511 Pain in right shoulder (principal); M19.011 Primary osteoarthritis, right shoulder; M75.101 Unspecified rotator cuff tear or rupture of right shoulder, not specified as traumatic
CPT/HCPCS: 73221

== ENCOUNTER 2024-04-09 08:30 | Outpatient (RCR) | payer OTHER, SELFPAY | END 2024-06-11 15:31 | disposition home or self-care (01) | PROVIDERS: PCP Family Medicine; Visit Provider Orthopaedic Surgery Sports Medicine | DX: M19.012 Primary osteoarthritis, left shoulder (principal); M67.922 Unspecified disorder of synovium and tendon, left upper arm; M75.102 Unspecified rotator cuff tear or rupture of left shoulder, not specified as traumatic; M25.512 Pain in left shoulder; M25.612 Stiffness of left shoulder, not elsewhere classified; Z51.89 Encounter for other specified aftercare | CPT/HCPCS: 80053; 80061; 82306; 97110; 97140; 97161; A9270 ==

== ENCOUNTER 2024-12-22 07:13 | Outpatient (CLI) | payer OTHER, SELFPAY ==
--- NOTE | 2024-12-22 08:39 | P.ANES_ITS ---
Anesthesia Charges Start Date/Time Anesthesia Start Date: 12/22/24 Anesthesia Start Time: 08:01 Stop Date/Time Anesthesia Stop Date: 12/22/24 Anesthesia Stop Time: 08:37 Coding CPT Codes CPT Codes: ANES LWR INTST NDSC NOS - 06659 ([id number]) P2 - PATIENT W/MILD SYST DISEASE, QZ - FLOOR COVERER SVC W/O ONLINE MARKETING ANALYST BY
--- NOTE | 2024-12-22 08:39 | W.ANESCHARGE ---
Anesthesia Charges Start Date/Time Anesthesia Start Date: 12/22/24 Anesthesia Start Time: 08:01 Stop Date/Time Anesthesia Stop Date: 12/22/24 Anesthesia Stop Time: 08:37 Coding CPT Codes CPT Codes: ANES LWR INTST NDSC NOS - 41808 ([id number]) P2 - PATIENT W/MILD SYST DISEASE, QZ - WEAVING INSTRUCTOR SVC W/O COMMERCIAL CREDIT LEAD BY
--- NOTE | 2024-12-22 09:31 | P.ANES_ITS ---
Anesthesia Charges Start Date/Time Anesthesia Start Date: 12/22/24 Anesthesia Start Time: 08:01 Stop Date/Time Anesthesia Stop Date: 12/22/24 Anesthesia Stop Time: 08:37 Coding CPT Codes CPT Codes: REYNA LWR INTST NDSC NOS - 01530 ([id number]) P2 - PATIENT W/MILD SYST DISEASE, QK - DIRECTOR STERILE PROCESSING 2-4 CNCRNT ANES PROC, QX - POLICE OFFICER CRIME PREVENTION SVC W/ MD MED DIRECTION
--- NOTE | 2024-12-22 09:31 | W.ANESCHARGE ---
Anesthesia Charges Start Date/Time Anesthesia Start Date: 12/22/24 Anesthesia Start Time: 08:01 Stop Date/Time Anesthesia Stop Date: 12/22/24 Anesthesia Stop Time: 08:37 Coding CPT Codes CPT Codes: REYNA LWR INTST NDSC NOS - 16186 ([id number]) P2 - PATIENT W/MILD SYST DISEASE, QK - COMMUNITY ENGAGEMENT MANAGER 2-4 CNCRNT ANES PROC, QX - PROCESS MANAGER SVC W/ MD MED DIRECTION
== END 2024-12-22 07:14 | disposition home or self-care (01) ==
LOC: OP CLINIC 07:14
PROVIDERS: PCP Family Medicine; Visit Provider Surgery
DX: Z12.11 Encounter for screening for malignant neoplasm of colon (principal); Z86.0101 Personal history of adenomatous and serrated colon polyps; D12.2 Benign neoplasm of ascending colon; D12.0 Benign neoplasm of cecum; D12.5 Benign neoplasm of sigmoid colon; D12.3 Benign neoplasm of transverse colon
CPT/HCPCS: 00811; 00812; 45385; 88305; J2704

== ENCOUNTER 2025-04-02 07:30 | Outpatient (CLI) | payer OTHER, SELFPAY ==
--- NOTE | 2025-04-02 07:45 | CRLHL7_ITS ---
For Patients: As a result of the Century Cures Act, medical imaging exams and procedure reports are released immediately into your electronic medical record. You may view this report before your referring provider. If you have questions, please contact your health care provider. INDICATION: BILATERAL SCREENING MAMMOGRAM, ASYMPTOMATIC 54 Y/O FEMALE COMPARISON: 03/26/2024, 05/16/2023, 06/14/2022 TECHNIQUE: Digital mammogram in CC and MLO projections including computer-aided detection (CAD) and tomosynthesis. BREAST COMPOSITION: The breasts are heterogeneously dense, which may obscure small masses. FINDINGS: No suspicious findings. ASSESSMENT: BI-RADS 1 Negative RECOMMENDATION: Annual screening mammogram. A lay language report of this examination will be provided to the patient. Dictated by: Oliver Vasquez MD @ 04/05/2025 12:20:23 (Electronically Signed)
== END 2025-04-02 07:31 | disposition home or self-care (01) ==
LOC: MAMMO 07:30
PROVIDERS: PCP Family Medicine; Visit Provider Family Medicine
DX: Z12.31 Encounter for screening mammogram for malignant neoplasm of breast (principal); R92.333 Mammographic heterogeneous density, bilateral breasts
CPT/HCPCS: 77063; 77067

== ENCOUNTER 2025-04-08 10:32 | Outpatient (CLI) | payer OTHER, SELFPAY | END 2025-04-08 10:33 | disposition home or self-care (01) | PROVIDERS: PCP Family Medicine; Visit Provider Family Medicine | DX: D50.9 Iron deficiency anemia, unspecified (principal); E78.5 Hyperlipidemia, unspecified; E55.9 Vitamin D deficiency, unspecified; R53.83 Other fatigue; I10 Essential (primary) hypertension | CPT/HCPCS: 82607; 84443 ==